=== PATIENT | female | born 1995 | race Caucasian/White ===

== ENCOUNTER 2016-07-14 05:36 | Emergency (ER) | payer BC ==
[2016-07-14] MEDS ORDERED: ONDANSETRON HCL IV 4 MG/2 ML VIAL IV ONE (06:05)
[2016-07-14] MEDS ORDERED: 0.9 % SODIUM CHLORIDE 1,000 ML BAG IV ONE (06:05)
[2016-07-14] MEDS ORDERED: HYDROMORPHONE HCL 1 MG/ML CPJ IVP ONE (06:05)
[2016-07-14 06:11] LABS: BASO % 0.3 % (0-6); GRAN % 58.4 % (47-80); HEMATOCRIT 42.6 % (35.0-47.0); HEMOGLOBIN 14.6 gm/dl (11.6-16.0); LYMPH % 31.4 % (16-45); MEAN CELL VOLUME 85.5 fl (81-97); MEAN CORPUSCULAR HEMOGLOBIN 29.3 pg (27-33); MEAN CORPUSCULAR HGB CONC 34.3 g/dl (32-36); MEAN PLATELET VOLUME 9.8 fl (7.4-10.4); MONO % 7.9 % (0-9); PLATELET COUNT 390 K/uL (130-400); RED BLOOD COUNT 4.98 M/uL (3.80-5.40); RED CELL DISTRIBUTION WIDTH 12.4 % (11.5-14.5); WHITE BLOOD COUNT W/O DIFF 7.9 K/uL (4.2-12.2)
[2016-07-14 06:23] LABS: ALB/GLOB RATIO 1.8 (1.1-1.8); ALBUMIN 5.1 gm/dL (3.5-5.0); ALKALINE PHOSPHATASE 84 U/L (38-126); ALT/SGPT 61 U/L (9-52); AMYLASE 43 U/L (30-110); ANION GAP 18.1 (7-16); AST/SGOT 68 U/L (14-36); BILIRUBIN,TOTAL 0.55 mg/dL (0.2-1.3); BLOOD UREA NITROGEN 13 mg/dL (7-17); CARBON DIOXIDE 22.9 mmol/L (22-30); CREATININE 0.8 mg/dL (0.52-1.04); EST GLOMERULAR FILTRATION RATE > 60 ml/min; GLUCOSE,RANDOM 93 mg/dL (70-110); LIPASE 57 U/L (23-300)
[2016-07-14 06:48] LABS: URINE APPEARANCE CLEAR; URINE BILIRUBIN MODERATE (NEGATIVE); URINE BLOOD NEGATIVE (NEGATIVE); URINE COLOR YELLOW; URINE GLUCOSE (UA) NEGATIVE (NEGATIVE); URINE KETONE 40 mg/dL (NEGATIVE); URINE LEUKOCYTE ESTERASE NEGATIVE (NEGATIVE); URINE NITRITE NEGATIVE (NEGATIVE); URINE PROTEIN NEGATIVE (NEGATIVE)
[2016-07-14 06:50] LABS: HCG,QUALITATIVE URINE NEGATIVE (NEGATIVE)
--- NOTE | 2016-07-14 06:51 | Emergency Department Record ---
History of Present Illness - General Chief Complaint: Shortness of breath Stated Complaint: ADIEL Time Seen by Provider: 07/14/16 06:00 Source: Patient Mode of Arrival: Ambulatory Limitations: No limitations - History of Present Illness Initial Comments: pt awakened with abd pain in epigastric area that gets worse w inspiration. pt had her wisdom teeth pulled 2 days ago and has not eaten much. pt has n but no v/c/d. Onset/Timin -: Minutes(s), Awoke with symptoms Radiation: Other Severity: Moderate Severity scale (1-10): 9 Quality: Sharp Consistency: Constant Improves With: Rest Worsens With: Nothing Associated Symptoms: Abdominal pain Treatments Prior to Arrival: None - Related Data Home Medications Medication Instructions Recorded Confirmed Last Taken Esomeprazole Magnesium [Nexium] 20 mg PO QD cap 04/11/16 Unknown Nortriptyline HCl [Pamelor] 50 mg PO QPM cap 04/11/16 Unknown Allergies Allergy/AdvReac Type Severity Reaction Status Date / Time No Known Drug Allergies Allergy Verified 07/14/16 05:38 Travel Screening - Travel/Exposure Within Last 30 Days Have you traveled within the last 30 days?: No - Travel/Exposure Within Last Year Have you traveled outside the [place] in the last year?: No - Additonal Travel Details Have you been exposed to anyone with a communicable illness?: No - Travel Symptoms Symptom Screening: None Review of Systems Reviewed: No additional complaints except as noted below Constitutional: Reports: As per HPI. Denies: Chills, Fever, Malaise, Night sweats, Weakness, Weight change Eyes: Reports: As per HPI. Denies: Eye discharge, Eye pain, Photophobia, Vision change ENT: Reports: As per HPI. Denies: Congestion, Dental pain, Ear pain, Epistaxis , Hearing loss, Throat pain Respiratory: Reports: As per HPI. Denies: Cough, Dyspnea, Hemoptysis, Stridor, Wheezes Cardiovascular: Reports: As per HPI. Denies: Arrhythmia, Chest pain, Dyspnea on exertion, Edema, Murmurs, Orthopnea, Palpitations, Paroxysmal nocturnal dyspnea, Rheumatic Fever, Syncope Endocrine: Reports: As per HPI. Denies: Fatigue, Heat or cold intolerance, Polydipsia, Polyuria Gastrointestinal: Reports: As per HPI. Denies: Abdominal pain, Constipation, Diarrhea, Hematemesis, Hematochezia, Melena, Nausea, Vomiting Genitourinary: Reports: As per HPI. Denies: Abnormal menses, Discharge, Dyspareunia, Dysuria, Frequency, Hematuria, Incontinence, Retention, Urgency Musculoskeletal: Reports: As per HPI. Denies: Arthralgia, Back pain, Gout, Joint swelling, Myalgia, Neck pain Skin: Reports: As per HPI. Denies: Bruising, Change in color, Change in hair/ nails, Lesions, Pruritus, Rash Neurological: Reports: As per HPI. Denies: Abnormal gait, Confusion, Headache, Numbness, Paresthesias, Seizure, Tingling, Tremors, Vertigo, Weakness Psychiatric: Reports: As per HPI. Denies: Anxiety, Auditory hallucinations, Depression, Homicidal thoughts, Suicidal thoughts, Visual hallucinations Hematological/Lymphatic: Reports: As per HPI. Denies: Anemia, Blood Clots, Easy bleeding, Easy bruising, Swollen glands Past Medical History - SOCIAL HISTORY Smoking Status: Never smoker Alcohol Use: Rare Drug Use: None - RESPIRATORY Hx Respiratory Disorders: No - CARDIOVASCULAR Hx Cardio Disorders: No - NEURO Hx Neuro Disorders: No - GI Hx GI Disorders: Yes Hx Abdominal Pain: Yes Hx Ulcer: Yes - Hx Genitourinary Disorders: Yes Hx Kidney Stones: Yes Hx UTI: Yes (3 uti in past 6 months) - ENDOCRINE Hx Endocrine Disorders: No - MUSCULOSKELETAL Hx Musculoskeletal Disorders: No - PSYCH Hx Psych Problems: No - HEMATOLOGY/ONCOLOGY Hx Hematology/Oncology Disorders: No Family Medical History Any Significant Family History?: No Hx Anxiety: Mother Hx Depression: Mother Hx Heart Disease: Grandparents Hx HTN: Grandparents Physical Exam - General General Appearance: Alert, Oriented x3, Cooperative, Mild distress - Head Head exam: Normal inspection - Eye Eye exam: Normal appearance, PERRL, EOMI Pupils: Normal accommodation - ENT ENT exam: Normal exam, Mucous membranes moist, Normal external ear exam, Normal orophraynx Ear exam: Normal external inspection. negative: External canal tenderness Nasal Exam: Normal inspection. negative: Discharge, Sinus tenderness Mouth exam: Normal external inspection, Tongue normal Teeth exam: Normal inspection. negative: Dental caries Throat exam: Normal inspection. negative: Tonsillar erythema, Tonsillar exudate - Neck Neck exam: Normal inspection, Full ROM. negative: Tenderness - Respiratory Respiratory exam: Normal lung sounds bilaterally. negative: Respiratory distress - Cardiovascular Cardiovascular Exam: Regular rate, Normal rhythm, Normal heart sounds - GI/Abdominal GI/Abdominal exam: Soft, Normal bowel sounds, Tenderness (epigastric and ruq areas) - Rectal Rectal exam: Deferred - exam: Deferred - Extremities Extremities exam: Normal inspection, Full ROM, Normal capillary refill. negative: Tenderness - Back Back exam: Reports: Normal inspection, Full ROM. Denies: Muscle spasm, Rash noted, Tenderness - Neurological Neurological exam: Alert, CN II-XII intact, Normal gait, Oriented X3 - Psychiatric Psychiatric exam: Normal affect, Normal mood - Skin Skin exam: Dry, Intact, Normal color, Warm Course Vital Signs 07/14/16 07/14/16 05:38 06:47 Temperature 98.8 F Pulse Rate 116 H Pulse Rate [ 89 Pulse Ox Probe] Respiratory 22 20 Rate Blood Pressure 154/79 Blood Pressure 124/71 [Left Arm] Pulse Ox 100 99 - Reevaluation(s) Reevaluation #1: 07/14/16 07:09 care being assumed by dr perez Medical Decision Making - Lab Data Result diagrams: 07/14/16 05:42 07/14/16 05:42 Lab Results 07/14/16 07/14/16 07/14/16 Range/Units 05:42 05:42 05:42 WBC 7.9 (4.2-12.2) K/uL RBC 4.98 (3.80-5.40) M/uL Hgb 14.6 (11.6-16.0) gm/dl Hct 42.6 (35.0-47.0) % MCV 85.5 (81-97) fl MCH 29.3 (27-33) pg MCHC 34.3 (32-36) g/dl RDW 12.4 (11.5-14.5) % Plt Count 390 (130-400) K/uL MPV 9.8 (7.4-10.4) fl Gran % 58.4 (47-80) % Lymphocytes % 31.4 (16-45) % Monocytes % 7.9 (0-9) % Eosinophils % 2.0 (0-6) % Basophils % 0.3 (0-6) % Sodium 140 (136-145) mmol/L Potassium 3.9 (3.5-5.1) mmol/L Chloride 99 (98-107) mmol/L Carbon Dioxide 22.9 (22-30) mmol/L Anion Gap 18.1 H (7-16) BUN 13 (7-17) mg/dL Creatinine 0.8 (0.52-1.04) mg/dL Estimated GFR > 60 ml/min Random Glucose 93 (70-110) mg/dL Calcium 9.6 (8.5-10.1) mg/dL Total Bilirubin 0.55 (0.2-1.3) mg/dL AST 68 H (14-36) U/L ALT 61 H (9-52) U/L Alkaline Phosphatase 84 (38-126) U/L Total Protein 8.0 (6.3-8.2) gm/dL Albumin 5.1 H (3.5-5.0) gm/dL Globulin 2.9 (1.4-4.8) gm/dL Albumin/Globulin Ratio 1.8 (1.1-1.8) Amylase 43 (30-110) U/L Lipase 57 (23-300) U/L Urine Color Urine Appearance Urine pH (5.0-8.0) Ur Specific [place] (1.002-1.030) Urine Protein (NEGATIVE) Urine Glucose (UA) (NEGATIVE) Urine Ketones (NEGATIVE) Urine Blood (NEGATIVE) Urine Nitrite (NEGATIVE) Urine Bilirubin (NEGATIVE) Urine Urobilinogen (0.20 - 1.00) E.U./dL Ur Leukocyte Esterase (NEGATIVE) 07/14/16 Range/Units 06:40 WBC (4.2-12.2) K/uL RBC (3.80-5.40) M/uL Hgb (11.6-16.0) gm/dl Hct (35.0-47.0) % MCV (81-97) fl MCH (27-33) pg MCHC (32-36) g/dl RDW (11.5-14.5) % Plt Count (130-400) K/uL MPV (7.4-10.4) fl Gran % (47-80) % Lymphocytes % (16-45) % Monocytes % (0-9) % Eosinophils % (0-6) % Basophils % (0-6) % Sodium (136-145) mmol/L Potassium (3.5-5.1) mmol/L Chloride (98-107) mmol/L Carbon Dioxide (22-30) mmol/L Anion Gap (7-16) BUN (7-17) mg/dL Creatinine (0.52-1.04) mg/dL Estimated GFR ml/min Random Glucose (70-110) mg/dL Calcium (8.5-10.1) mg/dL Total Bilirubin (0.2-1.3) mg/dL AST (14-36) U/L ALT (9-52) U/L Alkaline Phosphatase (38-126) U/L Total Protein (6.3-8.2) gm/dL Albumin (3.5-5.0) gm/dL Globulin (1.4-4.8) gm/dL Albumin/Globulin Ratio (1.1-1.8) Amylase (30-110) U/L Lipase (23-300) U/L Urine Color Yellow Urine Appearance Clear Urine pH 6.0 (5.0-8.0) Ur Specific [place] 1.025 (1.002-1.030) Urine Protein Negative (NEGATIVE) Urine Glucose (UA) Negative (NEGATIVE) Urine Ketones 40 mg/dl H (NEGATIVE) Urine Blood Negative (NEGATIVE) Urine Nitrite Negative (NEGATIVE) Urine Bilirubin Moderate H (NEGATIVE) Urine Urobilinogen 2.0 H (0.20 - 1.00) E.U./dL Ur Leukocyte Esterase Negative (NEGATIVE) Disposition Forms: Patient Portal Access
[2016-07-14] MEDS ORDERED: KETOROLAC 30 MG/ML VIAL IVP ONE (07:56)
--- NOTE | 2016-07-14 08:11 | Emergency Department Record ---
History of Present Illness - General Chief Complaint: Shortness of breath Stated Complaint: ADIEL Time Seen by Provider: 07/14/16 06:00 Source: Patient Mode of Arrival: Ambulatory Limitations: No limitations - History of Present Illness Onset/Timin -: Minutes(s), Awoke with symptoms Radiation: Other Severity: Moderate Severity scale (1-10): 9 Quality: Sharp Consistency: Constant Improves With: Rest Worsens With: Nothing Associated Symptoms: Abdominal pain Treatments Prior to Arrival: None - Related Data Home Medications Medication Instructions Recorded Confirmed Last Taken Esomeprazole Magnesium [Nexium] 20 mg PO QD cap 04/11/16 Unknown Nortriptyline HCl [Pamelor] 50 mg PO QPM cap 04/11/16 Unknown Previous Rx's Medication Instructions Recorded Naproxen [Naprosyn] 500 mg PO Q12H #20 tab 07/14/16 Allergies Allergy/AdvReac Type Severity Reaction Status Date / Time No Known Drug Allergies Allergy Verified 07/14/16 05:38 Travel Screening - Travel/Exposure Within Last 30 Days Have you traveled within the last 30 days?: No - Travel/Exposure Within Last Year Have you traveled outside the [place] in the last year?: No - Additonal Travel Details Have you been exposed to anyone with a communicable illness?: No - Travel Symptoms Symptom Screening: None Review of Systems Constitutional: Reports: As per HPI. Denies: Chills, Fever, Malaise, Night sweats, Weakness, Weight change Eyes: Reports: As per HPI. Denies: Eye discharge, Eye pain, Photophobia, Vision change ENT: Reports: As per HPI. Denies: Congestion, Dental pain, Ear pain, Epistaxis , Hearing loss, Throat pain Respiratory: Reports: As per HPI. Denies: Cough, Dyspnea, Hemoptysis, Stridor, Wheezes Cardiovascular: Reports: As per HPI. Denies: Arrhythmia, Chest pain, Dyspnea on exertion, Edema, Murmurs, Orthopnea, Palpitations, Paroxysmal nocturnal dyspnea, Rheumatic Fever, Syncope Endocrine: Reports: As per HPI. Denies: Fatigue, Heat or cold intolerance, Polydipsia, Polyuria Gastrointestinal: Reports: As per HPI. Denies: Abdominal pain, Constipation, Diarrhea, Hematemesis, Hematochezia, Melena, Nausea, Vomiting Genitourinary: Reports: As per HPI. Denies: Abnormal menses, Discharge, Dyspareunia, Dysuria, Frequency, Hematuria, Incontinence, Retention, Urgency Musculoskeletal: Reports: As per HPI. Denies: Arthralgia, Back pain, Gout, Joint swelling, Myalgia, Neck pain Skin: Reports: As per HPI. Denies: Bruising, Change in color, Change in hair/ nails, Lesions, Pruritus, Rash Neurological: Reports: As per HPI. Denies: Abnormal gait, Confusion, Headache, Numbness, Paresthesias, Seizure, Tingling, Tremors, Vertigo, Weakness Psychiatric: Reports: As per HPI. Denies: Anxiety, Auditory hallucinations, Depression, Homicidal thoughts, Suicidal thoughts, Visual hallucinations Hematological/Lymphatic: Reports: As per HPI. Denies: Anemia, Blood Clots, Easy bleeding, Easy bruising, Swollen glands Past Medical History - SOCIAL HISTORY Smoking Status: Never smoker Alcohol Use: Rare Drug Use: None - RESPIRATORY Hx Respiratory Disorders: No - CARDIOVASCULAR Hx Cardio Disorders: No - NEURO Hx Neuro Disorders: No - GI Hx GI Disorders: Yes Hx Abdominal Pain: Yes Hx Ulcer: Yes - Hx Genitourinary Disorders: Yes Hx Kidney Stones: Yes Hx UTI: Yes (3 uti in past 6 months) - ENDOCRINE Hx Endocrine Disorders: No - MUSCULOSKELETAL Hx Musculoskeletal Disorders: No - PSYCH Hx Psych Problems: No - HEMATOLOGY/ONCOLOGY Hx Hematology/Oncology Disorders: No Family Medical History Any Significant Family History?: No Hx Anxiety: Mother Hx Depression: Mother Hx Heart Disease: Grandparents Hx HTN: Grandparents Physical Exam - General Limitations: No limitations Course Vital Signs 07/14/16 07/14/16 05:38 06:47 Temperature 98.8 F Pulse Rate 116 H Pulse Rate [ 89 Pulse Ox Probe] Respiratory 22 20 Rate Blood Pressure 154/79 Blood Pressure 124/71 [Left Arm] Pulse Ox 100 99 - Reevaluation(s) Reevaluation #1: 07/14/16 08:08 CT Abdomen and Pelvis: bilateral non-obstructing renal calculi, L65-S1 disc herniation, nothing else acute. Patient seen and examined, mild-moderate epigastric/RUQ pain radiating to the right lower ribs. Labs reviewed and are grossly unremarkable for an acute process. D-dimer ordered for completeness as patient does have intra-dermal control, PERC criteria cannot be used. Reevaluation #2: 07/14/16 08:32 D-Dimer <0.19. Patient updated on all results, reports that her pain symptoms are improved following Toradol. Patient appears stable for discharge at this time with return for any worsening of her symptoms. Medical Decision Making - Lab Data Result diagrams: 07/14/16 05:42 07/14/16 05:42 Lab Results 07/14/16 07/14/16 07/14/16 Range/Units 05:42 05:42 05:42 WBC 7.9 (4.2-12.2) K/uL RBC 4.98 (3.80-5.40) M/uL Hgb 14.6 (11.6-16.0) gm/dl Hct 42.6 (35.0-47.0) % MCV 85.5 (81-97) fl MCH 29.3 (27-33) pg MCHC 34.3 (32-36) g/dl RDW 12.4 (11.5-14.5) % Plt Count 390 (130-400) K/uL MPV 9.8 (7.4-10.4) fl Gran % 58.4 (47-80) % Lymphocytes % 31.4 (16-45) % Monocytes % 7.9 (0-9) % Eosinophils % 2.0 (0-6) % Basophils % 0.3 (0-6) % Sodium 140 (136-145) mmol/L Potassium 3.9 (3.5-5.1) mmol/L Chloride 99 (98-107) mmol/L Carbon Dioxide 22.9 (22-30) mmol/L Anion Gap 18.1 H (7-16) BUN 13 (7-17) mg/dL Creatinine 0.8 (0.52-1.04) mg/dL Estimated GFR > 60 ml/min Random Glucose 93 (70-110) mg/dL Calcium 9.6 (8.5-10.1) mg/dL Total Bilirubin 0.55 (0.2-1.3) mg/dL AST 68 H (14-36) U/L ALT 61 H (9-52) U/L Alkaline Phosphatase 84 (38-126) U/L Total Protein 8.0 (6.3-8.2) gm/dL Albumin 5.1 H (3.5-5.0) gm/dL Globulin 2.9 (1.4-4.8) gm/dL Albumin/Globulin Ratio 1.8 (1.1-1.8) Amylase 43 (30-110) U/L Lipase 57 (23-300) U/L Urine Color Urine Appearance Urine pH (5.0-8.0) Ur Specific [place] (1.002-1.030) Urine Protein (NEGATIVE) Urine Glucose (UA) (NEGATIVE) Urine Ketones (NEGATIVE) Urine Blood (NEGATIVE) Urine Nitrite (NEGATIVE) Urine Bilirubin (NEGATIVE) Urine Urobilinogen (0.20 - 1.00) E.U./dL Ur Leukocyte Esterase (NEGATIVE) Urine HCG, Qual (NEGATIVE) 07/14/16 Range/Units 06:40 WBC (4.2-12.2) K/uL RBC (3.80-5.40) M/uL Hgb (11.6-16.0) gm/dl Hct (35.0-47.0) % MCV (81-97) fl MCH (27-33) pg MCHC (32-36) g/dl RDW (11.5-14.5) % Plt Count (130-400) K/uL MPV (7.4-10.4) fl Gran % (47-80) % Lymphocytes % (16-45) % Monocytes % (0-9) % Eosinophils % (0-6) % Basophils % (0-6) % Sodium (136-145) mmol/L Potassium (3.5-5.1) mmol/L Chloride (98-107) mmol/L Carbon Dioxide (22-30) mmol/L Anion Gap (7-16) BUN (7-17) mg/dL Creatinine (0.52-1.04) mg/dL Estimated GFR ml/min Random Glucose (70-110) mg/dL Calcium (8.5-10.1) mg/dL Total Bilirubin (0.2-1.3) mg/dL AST (14-36) U/L ALT (9-52) U/L Alkaline Phosphatase (38-126) U/L Total Protein (6.3-8.2) gm/dL Albumin (3.5-5.0) gm/dL Globulin (1.4-4.8) gm/dL Albumin/Globulin Ratio (1.1-1.8) Amylase (30-110) U/L Lipase (23-300) U/L Urine Color Yellow Urine Appearance Clear Urine pH 6.0 (5.0-8.0) Ur Specific [place] 1.025 (1.002-1.030) Urine Protein Negative (NEGATIVE) Urine Glucose (UA) Negative (NEGATIVE) Urine Ketones 40 mg/dl H (NEGATIVE) Urine Blood Negative (NEGATIVE) Urine Nitrite Negative (NEGATIVE) Urine Bilirubin Moderate H (NEGATIVE) Urine Urobilinogen 2.0 H (0.20 - 1.00) E.U./dL Ur Leukocyte Esterase Negative (NEGATIVE) Urine HCG, Qual Negative (NEGATIVE) Disposition Disposition: Discharge Clinical Impression: Right upper quadrant abdominal pain Disposition: Home, Self-Care Condition: (2) Stable Instructions: Acute Abdominal Pain (ED) Additional Instructions: Return to ED if your symptoms worsen or if you have any concerns. Naprosyn as directed. Follow-up with your family doctor in 3-5 days as directed. Prescriptions: Naproxen [Naprosyn] 500 mg PO Q12H #20 tab.dr Forms: Patient Portal Access Time of Disposition: 08:37
--- NOTE | 2016-07-17 08:04 | CT SCAN REPORT ---
EXAM: CT SCAN OF THE ABDOMEN AND PELVIS HISTORY: PATIENT HAS RIGHT UPPER QUADRANT ABDOMINAL PAIN. SHORTNESS OF BREATH FROM THE PAIN. TECHNIQUE: Serial axial CT scan of the abdomen and pelvis was performed at 2.5 mm intervals from the dome of the diaphragm down to the pubic symphysis without the use of intravenous or oral contrast. Comparison: CT scan of the abdomen and pelvis dated 12/17/15 is provided. FINDINGS: The lung windows of the lung bases demonstrate no CT evidence of a focal infiltrate or pleural effusion. The visualized heart size and contour is within taco limits. The liver, spleen, pancreas, bilateral adrenal glands, and gallbladder are unremarkable. The bilateral kidneys demonstrate no CT evidence of hydronephrosis or hydroureter. Nonobstructive renal calculi are noted within both kidneys. The largest calculus within the right kidney measures approximately 4.9 mm and is unchanged with respect to the prior examination. This is located at the inferior pole of the right kidney. The largest calculus within the left kidney is located within the mid pole and measures approximately 3 mm. The contour and caliber of the abdominal aorta is within normal limits. There is no CT evidence of retroperitoneal, pelvic or inguinal lymphadenopathy. The bowel gas pattern is nonspecific and nonobstructive. There is no CT evidence of free intraperitoneal air or free intraperitoneal fluid. The urinary bladder is unremarkable. The uterus is unremarkable. Bone windows of the visualized osseous structures of the abdomen and pelvis are unremarkable. Please note that the soft tissue windows of the lower lumbar spine in the lateral projection demonstrate findings suspicious for prominent disk herniation at the L5-S1 disk space level. If there is further clinical concern then an MRI of the lumbar spine can be obtained for further evaluation. IMPRESSION: 1. NO CT EVIDENCE OF AN ACUTE INTRAABDOMINAL PROCESS. 2. NONOBSTRUCTIVE BILATERAL RENAL CALCULI. 3. FINDINGS SUGGESTIVE OF DISK HERNIATION AT THE L5-S1 LEVEL. IF THERE IS FURTHER CLINICAL CONCERN THEN MRI OF THE LUMBAR SPINE CAN BE OBTAINED FOR FURTHER EVALUATION. JOB NUMBER: [id number] [facility]
== END 2016-07-14 08:47 | disposition home or self-care (01) ==
LOC: ER 05:36
DX: R10.11 Right upper quadrant pain (principal); R06.02 Shortness of breath; K08.409 Partial loss of teeth, unspecified cause, unspecified class
CPT/HCPCS: 99284 ×2; 96374; 96375; 82150; 83690; 85025; 80053; 81003; 81025; 85379; 74176; J1885; J2405; J1170; J7030

== ENCOUNTER 2017-01-05 02:45 | Emergency (ER) | payer BC ==
[2017-01-05 03:10] LABS: URINE APPEARANCE CLEAR; URINE BILIRUBIN NEGATIVE (NEGATIVE); URINE BLOOD MODERATE (NEGATIVE); URINE COLOR YELLOW; URINE GLUCOSE (UA) NEGATIVE (NEGATIVE); URINE KETONE NEGATIVE (NEGATIVE); URINE LEUKOCYTE ESTERASE NEGATIVE (NEGATIVE); URINE NITRITE NEGATIVE (NEGATIVE); URINE PROTEIN NEGATIVE (NEGATIVE); URINE UROBILINOGEN 0.2 E.U./dL (0.20 - 1.00)
--- NOTE | 2017-01-05 03:12 | Emergency Department Record ---
History of Present Illness - General Chief Complaint: Abdominal Pain Stated Complaint: SHARP ABD PAIN,NAUSEA,DIZZY Time Seen by Provider: 01/05/17 03:04 Source: Patient Mode of Arrival: Ambulatory Limitations: No limitations - History of Present Illness Initial Comments: The patient is here due to a 3 hour hx of sharp stabbing AP. The pain is intermittent and starts in the upper abdomen bilaterally and radiates to the middle. She has had nausea and dry heaves. There has been no reported fever, chills, diarrhea, dysuria, vaginal discharge or bleeding. The patient denies any abdominal surgeries. MD Complaint: Abdominal pain Onset/Timin -: Hour(s) Quality: Sharp Consistency: Constant Improves With: Nothing Worsens With: Bowel movement Associated Symptoms: Nausea, Other - Related Data LMP (females 10-50): Current Home Medications Medication Instructions Recorded Confirmed Last Taken Esomeprazole Magnesium [Nexium] 40 mg PO QD cap 04/11/16 01/05/17 Unknown Control Implant 1 applic SC DAILY 01/05/17 01/05/17 01/05/17 Previous Rx's Medication Instructions Recorded Hydrocodone/Acetaminophen [[place] 1 - 2 each PO QID #10 tablet 01/05/17 5-325 Tablet] Allergies Allergy/AdvReac Type Severity Reaction Status Date / Time No Known Drug Allergies Allergy Verified 01/05/17 02:50 Travel Screening - Travel/Exposure Within Last 30 Days Have you traveled within the last 30 days?: No - Travel Symptoms Symptom Screening: None Review of Systems Constitutional: Denies: Chills, Fever Eyes: Denies: Eye discharge ENT: Denies: Congestion Respiratory: Denies: Cough, Dyspnea Past Medical History - SOCIAL HISTORY Smoking Status: Never smoker - RESPIRATORY Hx Respiratory Disorders: No - CARDIOVASCULAR Hx Cardio Disorders: No - NEURO Hx Neuro Disorders: No - GI Hx GI Disorders: Yes Hx Abdominal Pain: Yes Hx Reflux: Yes Hx Ulcer: Yes - Hx Genitourinary Disorders: Yes Hx Kidney Stones: Yes Hx UTI: Yes (3 uti in past 6 months) - ENDOCRINE Hx Endocrine Disorders: No - MUSCULOSKELETAL Hx Musculoskeletal Disorders: No - PSYCH Hx Psych Problems: No - HEMATOLOGY/ONCOLOGY Hx Hematology/Oncology Disorders: No Family Medical History Any Significant Family History?: Yes Hx Anxiety: Mother Hx Depression: Mother Hx Heart Disease: Grandparents Hx HTN: Grandparents Physical Exam - General General Appearance: Alert, Oriented x3, Cooperative, No acute distress - Head Head exam: Atraumatic, Normocephalic, Normal inspection - Eye Eye exam: Normal appearance, PERRL - Neck Neck exam: Normal inspection, Full ROM. negative: Tenderness - Respiratory Respiratory exam: Normal lung sounds bilaterally. negative: Respiratory distress - Cardiovascular Cardiovascular Exam: Regular rate, Normal rhythm, Normal heart sounds - GI/Abdominal GI/Abdominal exam: Soft, Normal bowel sounds, Tenderness (There is mild tenderness to the upper abdomen bilaterally.). negative: Guarding, Pulsatile mass, Rebound, Rigid - Extremities Extremities exam: Normal inspection, Full ROM, Normal capillary refill. negative: Tenderness Course Vital Signs 01/05/17 02:55 Temperature 98.2 F Pulse Rate [ 105 H Pulse Ox Probe] Respiratory 22 Rate Blood Pressure 124/64 [Left Arm] Pulse Ox 96 - Reevaluation(s) Reevaluation #1: The patient is doing much better at this time. Her pain has resolved and on exam her abdomen is very soft and nontender in all 4 quads. The patient is up ambulating normally with no pain or discomfort. I did explain to the patient the need for an US but since we are not able to perform that test she is to return to the ER at 8am Friday morning for the test. 01/05/17 04:01 Medical Decision Making - Lab Data Result diagrams: 01/05/17 03:17 01/05/17 03:17 Disposition Disposition: Discharge Clinical Impression: Abdominal pain Qualifiers: Abdominal location: upper abdomen, unspecified Qualified Code(s): R10.10 - Upper abdominal pain, unspecified Disposition: Home, Self-Care Condition: (1) Good Instructions: Abdominal Pain (ED) Additional Instructions: Please eat a very bland diet and take your regular medicines. Please use [place] for pain if needed. Please return to the ER at 8am Friday morning for an abdominal US. Return to the ER sooner for any increased pain, fever, or vomiting. Prescriptions: Hydrocodone/Acetaminophen [[place] 5-325 Tablet] 1 - 2 each PO QID #10 tablet Forms: Patient Portal Access Time of Disposition: 04:00 Quality - Quality Measures Quality Measures: N/A - Blood Pressure Screening View Details: Yes Blood Pressure Classification: Normal BP Reading Systolic Measurement: 108 Diastolic Measurement: 68 Screening for High Blood Pressure: < Normal BP, F/U Not Required > [[id number]] Normal BP Follow-up Interventions: No follow-up required
[2017-01-05] MEDS: 0.9 % SODIUM CHLORIDE 1,000 ML BAG IV ONE (03:18)
[2017-01-05] MEDS: ONDANSETRON HCL IV 4 MG/2 ML VIAL IV ONE (03:18)
[2017-01-05] MEDS: SUCRALFATE 1 G/10 ML UD PO ONE (03:18)
[2017-01-05 03:21] LABS: URINE AMORPHOUS SEDIMENT 1+; URINE MUCUS LIGHT
[2017-01-05 03:21] LABS: BASO % 0.2 % (0-6); EOS % 0.8 % (0-6); GRAN % 72.4 % (47-80); HEMATOCRIT 38.5 % (35.0-47.0); HEMOGLOBIN 13.5 gm/dl (11.6-16.0); LYMPH % 20.5 % (16-45); MEAN CELL VOLUME 85.6 fl (81-97); MEAN CORPUSCULAR HGB CONC 35.1 g/dl (32-36); MEAN PLATELET VOLUME 10.1 fl (7.4-10.4); MONO % 6.1 % (0-9); PLATELET COUNT 309 K/uL (130-400); RED CELL DISTRIBUTION WIDTH 12.4 % (11.5-14.5); WHITE BLOOD COUNT W/O DIFF 14.2 K/uL (4.2-12.2)
[2017-01-05 03:32] LABS: ALBUMIN 4.8 gm/dL (3.5-5.0); ALKALINE PHOSPHATASE 74 U/L (38-126); ALT/SGPT 33 U/L (9-52); ANION GAP 10.9 (7-16); AST/SGOT 18 U/L (14-36); BILIRUBIN,TOTAL 0.86 mg/dL (0.2-1.3); BLOOD UREA NITROGEN 13 mg/dL (7-17); CARBON DIOXIDE 23.1 mmol/L (22-30); CREATININE 0.8 mg/dL (0.52-1.04); EST GLOMERULAR FILTRATION RATE > 60 ml/min; GLUCOSE,RANDOM 110 mg/dL (70-110); LIPASE 48 U/L (23-300); TOTAL PROTEIN 7.5 gm/dL (6.3-8.2)
[2017-01-05] MEDS: KETOROLAC 30 MG/ML VIAL IVP ONE (03:44)
[2017-01-05] MEDS: MAGNESIUM HYDROXIDE/AL HYDROX 30 ML, LIDOCAINE VISC 2% 200 MG PO ONE ×2 (03:45)
== END 2017-01-05 04:17 | disposition home or self-care (01) ==
LOC: ER 02:45
DX: R10.10 Upper abdominal pain, unspecified (principal); R11.0 Nausea; R42 Dizziness and giddiness
CPT/HCPCS: 99284 ×2; 96374; 96375; 96361; 83690; 85025; 80076; 80048; 81001; 81025; J1885; J2405; J7030

== ENCOUNTER 2017-01-06 09:30 | Observation (INO) | payer BC ==
--- NOTE | 2017-01-06 09:34 | Emergency Department Record ---
History of Present Illness - General Stated Complaint: ULTRASOUND Time Seen by Provider: 01/06/17 09:33 Source: Patient Mode of Arrival: Ambulatory Limitations: No limitations - History of Present Illness Initial Comments: 22 yo female presents for a recheck and scheduled US. The patient has had pain in the upper abdomen since Friday. It starts in the upper outer bialteral abdomen and radiates to the middle. She has some intermittent nausea. None currently. No diarrhea. No fever. She has had recurrent pain in the past. She has had 6 CT scan and an upper GI that demonstrated gastric ulcers. No blood in the stools. MD Complaint: Abdominal pain -: Days(s) Location: Epigastric Radiation: Epigastric Migration to: Epigastric Severity: Moderate Quality: Aching Consistency: Intermittent Improves With: Nothing Worsens With: Nothing Associated Symptoms: Anorexia - Related Data Patient : No Home Medications Medication Instructions Recorded Confirmed Last Taken Esomeprazole Magnesium [Nexium] 40 mg PO QD cap 04/11/16 01/06/17 01/06/17 Control Implant 1 applic SC DAILY 01/05/17 01/06/17 01/06/17 Previous Rx's Medication Instructions Recorded Hydrocodone/Acetaminophen [[place] 1 - 2 each PO QID #10 tablet 01/05/17 5-325 Tablet] Allergies Allergy/AdvReac Type Severity Reaction Status Date / Time No Known Drug Allergies Allergy Verified 01/05/17 02:50 Review of Systems Constitutional: Denies: Chills, Fever, Malaise, Weakness Eyes: Denies: Eye discharge ENT: Denies: Congestion, Throat pain Respiratory: Denies: Cough, Dyspnea, Hemoptysis, Stridor, Wheezes Cardiovascular: Denies: Chest pain, Palpitations, Syncope Endocrine: Denies: Fatigue Gastrointestinal: Reports: Abdominal pain, Nausea, Vomiting. Denies: Diarrhea, Hematemesis, Hematochezia Genitourinary: Denies: Dysuria, Urgency Musculoskeletal: Denies: Arthralgia, Back pain, Neck pain Skin: Denies: Bruising, Change in color, Rash Neurological: Denies: Headache, Numbness Psychiatric: Denies: Anxiety Hematological/Lymphatic: Denies: Blood Clots, Easy bleeding, Easy bruising, Swollen glands Past Medical History - SOCIAL HISTORY Smoking Status: Never smoker - RESPIRATORY Hx Respiratory Disorders: No - CARDIOVASCULAR Hx Cardio Disorders: No - NEURO Hx Neuro Disorders: No - GI Hx GI Disorders: Yes Hx Abdominal Pain: Yes Hx Reflux: Yes Hx Ulcer: Yes - Hx Genitourinary Disorders: Yes Hx Kidney Stones: Yes Hx UTI: Yes (3 uti in past 6 months) - ENDOCRINE Hx Endocrine Disorders: No - MUSCULOSKELETAL Hx Musculoskeletal Disorders: No - PSYCH Hx Psych Problems: No - HEMATOLOGY/ONCOLOGY Hx Hematology/Oncology Disorders: No Family Medical History Hx Anxiety: Mother Hx Depression: Mother Hx Heart Disease: Grandparents Hx HTN: Grandparents Physical Exam - General General Appearance: Alert, Oriented x3, Cooperative, No acute distress Limitations: No limitations - Head Head exam: Normal inspection - Eye Eye exam: Normal appearance - ENT ENT exam: Normal exam Ear exam: Normal external inspection Nasal Exam: Normal inspection Mouth exam: Normal external inspection - Neck Neck exam: Normal inspection, Full ROM. negative: Tenderness - Respiratory Respiratory exam: Normal lung sounds bilaterally. negative: Respiratory distress - Cardiovascular Cardiovascular Exam: Regular rate, Normal rhythm, Normal heart sounds - GI/Abdominal GI/Abdominal exam: Soft, Normal bowel sounds, Tenderness (mild in the epigastrium). negative: Distended, Guarding, Rebound, Rigid - Rectal Rectal exam: Deferred - exam: Deferred - Extremities Extremities exam: Normal inspection, Full ROM, Normal capillary refill. negative: Tenderness - Back Back exam: Reports: Normal inspection, Full ROM. Denies: CVA tenderness (R), CVA tenderness (L), Muscle spasm, Paraspinal tenderness, Rash noted, Tenderness , Vertebral tenderness - Neurological Neurological exam: Alert, Normal gait, Oriented X3 - Psychiatric Psychiatric exam: Normal affect, Normal mood - Skin Skin exam: Dry, Intact, Normal color, Warm Course - Reevaluation(s) Reevaluation #1: The labs were reviewed No acute changes in the CBC, CMP The lipase is now elevated to 546 The patient is in US 01/06/17 10:38 Reevaluation #2: I ANDERSON MCFARLANE regarding pancreatitis diagnosis Will admit for OBV 01/06/17 11:09 Reevaluation #3: US no acute findings. No stones. GB not fully distended. 01/06/17 11:24 Medical Decision Making - Lab Data Result diagrams: 01/06/17 10:02 01/06/17 10:02 Disposition Disposition: Admit Clinical Impression: Abdominal pain Qualifiers: Abdominal location: unspecified location Qualified Code(s): R10.9 - Unspecified abdominal pain Pancreatitis Qualifiers: Chronicity: acute Pancreatitis type: unspecified pancreatitis type Acute pancreatitis complication: unspecified Qualified Code(s): K85.90 - Acute pancreatitis without necrosis or infection, unspecified Disposition: Still a Patient at [facility] Decision to Admit: Admit from ER Decision to Admit Date: 01/06/17 Decision to Admit Time: 11:10 Condition: (1) Good Time of Disposition: 11:10 Quality - Quality Measures Quality Measures: N/A - Blood Pressure Screening View Details: Yes Blood Pressure Classification: Normal BP Reading Systolic Measurement: 110 Diastolic Measurement: 71 Screening for High Blood Pressure: < Normal BP, F/U Not Required > [G8783] Normal BP Follow-up Interventions: No follow-up required
[2017-01-06 10:08] LABS: BASO % 0.3 % (0-6); GRAN % 48.2 % (47-80); HEMOGLOBIN 12.6 gm/dl (11.6-16.0); LYMPH % 42.1 % (16-45); MEAN CELL VOLUME 88.4 fl (81-97); MEAN CORPUSCULAR HEMOGLOBIN 29.3 pg (27-33); MEAN CORPUSCULAR HGB CONC 33.2 g/dl (32-36); MEAN PLATELET VOLUME 10.2 fl (7.4-10.4); MONO % 7.4 % (0-9); PLATELET COUNT 301 K/uL (130-400); RED CELL DISTRIBUTION WIDTH 12.6 % (11.5-14.5); WHITE BLOOD COUNT W/O DIFF 6.9 K/uL (4.2-12.2)
[2017-01-06 10:32] LABS: ALB/GLOB RATIO 1.7 (1.1-1.8); ALBUMIN 4.5 gm/dL (3.5-5.0); ALKALINE PHOSPHATASE 68 U/L (38-126); ALT/SGPT 37 U/L (9-52); ANION GAP 8.5 (7-16); AST/SGOT 15 U/L (14-36); BILIRUBIN,TOTAL 0.71 mg/dL (0.2-1.3); BLOOD UREA NITROGEN 12 mg/dL (7-17); CARBON DIOXIDE 23.5 mmol/L (22-30); CREATININE 0.8 mg/dL (0.52-1.04); EST GLOMERULAR FILTRATION RATE > 60 ml/min; GLUCOSE,RANDOM 89 mg/dL (70-110); LIPASE 546 U/L (23-300); TOTAL PROTEIN 7.1 gm/dL (6.3-8.2)
[2017-01-06] MEDS ORDERED: 0.9 % SODIUM CHLORIDE 1,000 ML BAG IV ONE (10:41)
[2017-01-06 11:18] LABS: URINE APPEARANCE CLEAR; URINE BILIRUBIN NEGATIVE (NEGATIVE); URINE GLUCOSE (UA) NEGATIVE (NEGATIVE); URINE KETONE NEGATIVE (NEGATIVE); URINE PROTEIN NEGATIVE (NEGATIVE)
[2017-01-06 11:19] LABS: URINE BLOOD MODERATE (NEGATIVE); URINE COLOR STRAW; URINE LEUKOCYTE ESTERASE NEGATIVE (NEGATIVE); URINE NITRITE NEGATIVE (NEGATIVE); URINE UROBILINOGEN 0.2 E.U./dL (0.20 - 1.00)
[2017-01-06 11:24] LABS: HCG,QUALITATIVE URINE NEGATIVE (NEGATIVE); URINE BACTERIA NONE SEEN; URINE EPITHELIAL CELLS 0 - 2 (FEW); URINE WBC NONE SEEN (0-2/hpf)
[2017-01-06] MEDS ORDERED: ONDANSETRON HCL IV 4 MG/2 ML VIAL IVP ONE (11:37)
[2017-01-06] MEDS ORDERED: MORPHINE SULFATE 5 MG/ML PFS IVP ONE (11:37)
[2017-01-06] MEDS: PANTOPRAZOLE SODIUM IV 40 MG VIAL IVP SCH ×2 (13:15→22:11)
[2017-01-06] MEDS: MORPHINE SULFATE 5 MG/ML PFS IVP PRN ×3 (14:13→22:11)
[2017-01-06] MEDS: 0.9 % SODIUM CHLORIDE 1000ML 1,000 ML IV PRN (22:12)
[2017-01-06] MEDS: ONDANSETRON HCL IV 4 MG/2 ML VIAL IVP PRN (22:29)
[2017-01-07] MEDS: ONDANSETRON HCL IV 4 MG/2 ML VIAL IVP PRN (04:44)
[2017-01-07] MEDS: MORPHINE SULFATE 5 MG/ML PFS IVP PRN ×3 (04:45→13:08)
[2017-01-07 06:19] LABS: ALB/GLOB RATIO 1.6 (1.1-1.8); ALBUMIN 3.8 gm/dL (3.5-5.0); ALKALINE PHOSPHATASE 56 U/L (38-126); ALT/SGPT 33 U/L (9-52); ANION GAP 9.5 (7-16); AST/SGOT 16 U/L (14-36); BILIRUBIN,TOTAL 0.78 mg/dL (0.2-1.3); BLOOD UREA NITROGEN 8 mg/dL (7-17); CARBON DIOXIDE 23.5 mmol/L (22-30); CREATININE 0.8 mg/dL (0.52-1.04); EST GLOMERULAR FILTRATION RATE > 60 ml/min; GLUCOSE,RANDOM 86 mg/dL (70-110); LIPASE 167 U/L (23-300); TOTAL PROTEIN 6.2 gm/dL (6.3-8.2)
[2017-01-07 06:24] LABS: BASO % 0.3 % (0-6); EOS % 1.6 % (0-6); GRAN % 44.9 % (47-80); HEMATOCRIT 35.4 % (35.0-47.0); HEMOGLOBIN 11.7 gm/dl (11.6-16.0); LYMPH % 47.5 % (16-45); MEAN CELL VOLUME 89.2 fl (81-97); MEAN CORPUSCULAR HEMOGLOBIN 29.5 pg (27-33); MEAN CORPUSCULAR HGB CONC 33.1 g/dl (32-36); MEAN PLATELET VOLUME 10.5 fl (7.4-10.4); MONO % 5.7 % (0-9); PLATELET COUNT 287 K/uL (130-400); RED BLOOD COUNT 3.97 M/uL (3.80-5.40); RED CELL DISTRIBUTION WIDTH 12.5 % (11.5-14.5); WHITE BLOOD COUNT W/O DIFF 7.4 K/uL (4.2-12.2)
--- NOTE | 2017-01-07 07:18 | ULTRASOUND REPORT ---
EXAM: EMERGENCY ABDOMEN ULTRASOUND HISTORY: RECURRENT UPPER ABDOMINAL PAIN FOR THREE DAYS WITH NAUSEA AND VOMITING FOR THREE DAYS. TECHNIQUE: Complete real-time ultrasound examination of the abdomen was obtained. Comparison: No prior abdomen ultrasound with which to compare. FINDINGS: The majority of the pancreas is visualized and appears negative with no pancreatic mass or peripancreatic fluid collection evident. The abdominal aorta appears negative with no aneurysm seen. The IVC was negative as seen. The liver appears negative with no hepatic mass or intrahepatic biliary dilatation seen. The right kidney measures 11.2 cm in length with no hydronephrosis evident. The common duct was seen and was of normal caliber. The gallbladder is not fully distended. The storeroom supervisor notes that the patient was not NPO for the exam having had thirty-two (32) ounces of water prior to the exam. Mild diffuse prominence of the gallbladder wall may simply be due to incomplete distention. The storeroom supervisor dictates a negative sonographic Arciniega' s sign and no definite pericholecystic fluid collection identified. The left kidney measures 12.1 cm in length with no hydronephrosis evident. The spleen appears negative. IMPRESSION: 1. THE GALLBLADDER IS INCOMPLETELY DISTENDED WITH THE PATIENT NOT NPO FOR THE EXAM. MILD DIFFUSE GALLBLADDER WALL PROMINENCE IS NONSPECIFIC, BUT MAY JUST BE DUE TO THE INCOMPLETE DISTENTION. NO ACTUAL GALLSTONES OR BILIARY DILATATION SEEN AND A NEGATIVE SONOGRAPHIC ARCINIEGA'S SIGN. 2. THE REMAINDER OF THE ABDOMEN ULTRASOUND APPEARED NEGATIVE. NO HYDRONEPHROSIS EVIDENT ON EITHER SIDE. JOB NUMBER: [id number] MTDD
[2017-01-07] MEDS: PANTOPRAZOLE SODIUM IV 40 MG VIAL IVP SCH ×2 (09:13→21:12)
[2017-01-07] MEDS: 0.9 % SODIUM CHLORIDE 1000ML 1,000 ML IV PRN (09:20)
[2017-01-07] MEDS ORDERED: [UNRECOGNIZED DRUG - OTHER] SC SCH (10:00)
--- NOTE | 2017-01-07 10:57 | History & Physical ---
History of Present Illness - Date of Service Date of Service for History & Physical: 01/08/17 - History of Present Illness Admitting Diagnosis: Pancreatitis History of Present Illness: 22 yo female presents after two visits to ED within the weekend for bilateral upper quad abdominal pain. At the second ED visit she had an US which did not show any significant findings. Patients symptoms started on Friday while driving. SHe stated it felt sharp and unlike any pain she had experienced in the past. IN the past, patient has experienced mulitple kidney stones and ulcers (age 16). The pain starts in the upper outer bilateral abdomen and radiates to the middle. She has some intermittent nausea and dry heaving. she has not been able to tolerate any solids without significant nausea. No diarrhea. No fever. No blood in the stools. 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 She states there have been no sick contacts or any other people at the green party that she knows that got sick. She is on her 4th day of her menses. Has implanan for BC and is sexually active. She admits on Friday she drank heavily as it was her 22st birthday. She does not typcially drink per patient and she did not have any symptoms apart from a headache until Friday. in the ED, her lipase was in 500s but this has trended down on its own. No other labs were abnormal including her WBC, liver enzymes, etc. Travel Screening - Travel/Exposure Within Last 30 Days Have you traveled within the last 30 days?: No - Travel/Exposure Within Last Year Have you traveled outside the [place] in the last year?: No - Additonal Travel Details Have you been exposed to anyone with a communicable illness?: No - Travel Symptoms Symptom Screening: None Review of Systems Constitutional: Denies: Chills, Fever, Malaise, Weakness Eyes: Denies: Eye discharge ENT: Denies: Congestion, Throat pain Respiratory: Denies: Cough, Dyspnea, Hemoptysis, Stridor, Wheezes Cardiovascular: Denies: Chest pain, Palpitations, Syncope Endocrine: Denies: Fatigue Gastrointestinal: Reports: Abdominal pain, Nausea, Vomiting. Denies: Diarrhea, Hematemesis, Hematochezia Genitourinary: Denies: Dysuria, Urgency Musculoskeletal: Denies: Arthralgia, Back pain, Neck pain Skin: Denies: Bruising, Change in color, Rash Neurological: Denies: Headache, Numbness Psychiatric: Denies: Anxiety Hematological/Lymphatic: Denies: Blood Clots, Easy bleeding, Easy bruising, Swollen glands Past Medical History - SOCIAL HISTORY Smoking Status: Never smoker Alcohol Use: None Drug Use: None - RESPIRATORY Hx Respiratory Disorders: No - CARDIOVASCULAR Hx Cardio Disorders: No - NEURO Hx Neuro Disorders: No - GI Hx GI Disorders: Yes Hx Abdominal Pain: Yes Hx Reflux: Yes Hx Ulcer: Yes - Hx Genitourinary Disorders: Yes Hx Kidney Stones: Yes Hx UTI: Yes (3 uti in past 6 months) - ENDOCRINE Hx Endocrine Disorders: No - MUSCULOSKELETAL Hx Musculoskeletal Disorders: No - PSYCH Hx Psych Problems: No - HEMATOLOGY/ONCOLOGY Hx Hematology/Oncology Disorders: No Family Medical History Any Significant Family History?: Yes Hx Anxiety: Mother Hx Depression: Mother Hx Heart Disease: Grandparents Hx HTN: Grandparents H&P Meds/Allergies - Allergies Allergies: Allergies Allergy/AdvReac Type Severity Reaction Status Date / Time No Known Drug Allergies Allergy Verified 01/05/17 02:50 - Home Medications Home Medications Medication Instructions Recorded Confirmed Last Taken Esomeprazole Magnesium [Nexium] 40 mg PO QD cap 04/11/16 01/06/17 01/06/17 Control Implant 1 applic SC DAILY 01/05/17 01/06/17 01/06/17 Previous Rx's Medication Instructions Recorded Hydrocodone/Acetaminophen [[place] 1 - 2 each PO QID #10 tablet 01/05/17 5-325 Tablet] - Active Medications Active Medications: Current Medications Amitriptyline HCl (Elavil) 25 mg PO QHS ADAMA Sodium Chloride () 1,000 mls @ 100 mls/hr IV .Q10H PRN PRN Reason: LARGE VOLUME IV Last Admin: 01/07/17 09:20 Dose: 100 mls/hr Morphine Sulfate (Morphine Sulfate) 2.5 mg IVP Q4HR PRN PRN Reason: Abdominal Pain Stop: 01/13/17 12:21 Last Admin: 01/07/17 09:19 Dose: 2.5 mg Ondansetron HCl (Zofran) 4 mg IVP Q4H PRN PRN Reason: NAUSEA Last Admin: 01/07/17 04:44 Dose: 4 mg Pantoprazole Sodium (Protonix Iv) 40 mg IVP Q12HR ADAMA Last Admin: 01/07/17 09:13 Dose: 40 mg Physical Exam - Vital Signs Vital Signs: Vital Signs - Last 24 Hrs Temp Pulse Pulse Resp BP BP Pulse Ox 01/07/17 09:30 98.9 F 66 16 95/56 100 01/07/17 09:22 60 16 01/07/17 04:00 97.8 F 63 16 98/55 98 01/06/17 21:00 18 01/06/17 20:19 98.4 F 68 24 111/64 99 01/06/17 12:41 20 01/06/17 12:20 97.8 F 75 18 122/69 100 - General General Appearance: Alert, Oriented x3, Cooperative, Mild distress, Other (obese ) Limitations: No limitations - Head Head exam: Normal inspection - Eye Eye exam: Normal appearance - ENT ENT exam: Normal exam Ear exam: Normal external inspection Nasal Exam: Normal inspection Mouth exam: Normal external inspection - Neck Neck exam: Normal inspection, Full ROM. negative: Tenderness - Respiratory Respiratory exam: Normal lung sounds bilaterally. negative: Respiratory distress - Cardiovascular Cardiovascular Exam: Regular rate, Normal rhythm, Normal heart sounds - GI/Abdominal GI/Abdominal exam: Soft, Normal bowel sounds, Tenderness (mild in the epigastrium). negative: Distended, Guarding, Rebound, Rigid - Rectal Rectal exam: Deferred - exam: Deferred - Extremities Extremities exam: Normal inspection, Full ROM, Normal capillary refill. negative: Tenderness - Back Back exam: Reports: Normal inspection, Full ROM. Denies: CVA tenderness (R), CVA tenderness (L), Muscle spasm, Paraspinal tenderness, Rash noted, Tenderness , Vertebral tenderness - Neurological Neurological exam: Alert, Normal gait, Oriented X3 - Psychiatric Psychiatric exam: Normal affect, Normal mood - Skin Skin exam: Dry, Intact, Normal color, Warm Results - Labs Result Diagrams: 01/08/17 10:35 01/08/17 10:35 Labs Last 24 Hours: Laboratory Results - last 24 hr 01/07/17 01/07/17 06:00 06:00 WBC 7.4 RBC 3.97 Hgb 11.7 Hct 35.4 MCV 89.2 MCH 29.5 MCHC 33.1 RDW 12.5 Plt Count 287 MPV 10.5 H Gran % 44.9 L Lymphocytes % 47.5 H Monocytes % 5.7 Eosinophils % 1.6 Basophils % 0.3 Sodium 139 Potassium 4.1 Chloride 106 Carbon Dioxide 23.5 Anion Gap 9.5 BUN 8 Creatinine 0.8 Estimated GFR > 60 Random Glucose 86 Calcium 8.7 Total Bilirubin 0.78 AST 16 ALT 33 Alkaline Phosphatase 56 Total Protein 6.2 L Albumin 3.8 Globulin 2.4 Albumin/Globulin Ratio 1.6 Lipase 167 VTE H&P Assessment - Risk for VTE Risk for VTE: Yes Risk Level: Low Risk Assessment Date: 01/08/17 Risk Assessment Time: 11:49 VTE Orders Placed or Will Be Placed: No VTE Reason for No Prophylaxis: Not Indicated Plan - Detailed Diagnosis and Plan (1) Abdominal pain Current Visit: Yes Status: Acute Qualifiers: Abdominal location: right upper quadrant Qualified Code(s): R10.11 - Right upper quadrant pain Base Code: R10.9 - UNSPECIFIED ABDOMINAL PAIN Comment: 01/07/17- discussed currently we do not see an etiology for patient's symtpoms. Discussed doing a CT with contrast to see if there is anything further to be noted. Mom and patient agrees. Spoke to Dr. Berrios after CT did not show anythign significant except small periumbilical hernia (not incarcerated) and bilateral non- obstructing kidney stones. Will trial overnight with pain medications and fluids to see if symtpoms improve, if not will transfer to [facility] to have GI and surgery see patient.
[2017-01-07] MEDS ORDERED: ACETAMINOPHEN 500 MG TABLET PO ONE (14:50)
[2017-01-07] MEDS ORDERED: 0.9 % SODIUM CHLORIDE 1,000 ML BAG IV ONE (16:20)
[2017-01-07] MEDS: HYDROCODONE/APAP 5/325MG TABLET PO PRN ×2 (16:26→21:12)
[2017-01-07] MEDS ORDERED: AMITRIPTYLINE 25 MG TABLET PO SCH (22:00)
[2017-01-08] MEDS: 0.9 % SODIUM CHLORIDE 1000ML 1,000 ML IV PRN ×2 (01:07→12:20)
--- NOTE | 2017-01-08 07:22 | CT SCAN REPORT ---
EXAM: EMERGENCY CT SCAN OF THE ABDOMEN BOTH WITHOUT AND WITH CONTRAST HISTORY: SEVERE RIGHT UPPER QUADRANT PAIN. TECHNIQUE: Axial CT scan of the abdomen was performed both prior to and after the intravenous administration of 100 ml of Omnipaque 300 as the IV contrast. Oral contrast was also utilized. Comparison: Noncontrast CT of the abdomen and pelvis 07/14/16. FINDINGS: On the precontrast images today, there are bilateral currently nonobstructing intrarenal calculi evident. Bilateral nonobstructing intrarenal calculi were evident on the prior CT as well. No appreciable hydronephrosis or hydroureter of the visualized ureters. As no pelvic CT was performed, the more distal aspect of the ureters and bladder are not included on this study. No calcified gallstones are seen within the gallbladder. On the post contrast study today, no definite hepatic, splenic, adrenal, pancreatic, or renal mass identified. There is probably a small accessory spleen just medial to the spleen itself, also present previously. The appendix is visualized and is at about the upper limits of normal in size, with no appendicitis evident. The lung bases are clear. No free intraperitoneal air or free intraperitoneal fluid identified. Small periumbilical anterior abdominal wall hernia containing adipose tissue, but no bowel. There again appears to be a central midline disk protrusion at the lumbosacral interspace essentially unchanged from before. IMPRESSION: 1. BILATERAL TINY NONOBSTRUCTING INTRARENAL CALCULI. 2. APPARENT SMALL ACCESSORY SPLEEN. 3. VERY SMALL ANTERIOR ABDOMINAL WALL HERNIA CONTAINING ADIPOSE TISSUE, BUT NO BOWEL. 4. APPEARANCE LIKELY REPRESENTING A MIDLINE DISK PROTRUSION AT THE LUMBOSACRAL INTERSPACE UNCHANGED FROM 07/14/16. 5. NO FREE AIR OR FREE FLUID EVIDENT. THE APPENDIX IS AT ABOUT THE UPPER LIMITS OF NORMAL IN SIZE WITH NO INFLAMMATORY CHANGES SEEN TO SUGGEST ACUTE APPENDICITIS. JOB NUMBER: [id number] [facility]
[2017-01-08] MEDS: HYDROCODONE/APAP 5/325MG TABLET PO PRN (08:22)
[2017-01-08] MEDS: PANTOPRAZOLE SODIUM IV 40 MG VIAL IVP SCH (09:46)
[2017-01-08 10:50] LABS: BASO % 0.3 % (0-6); EOS % 0.9 % (0-6); GRAN % 59.2 % (47-80); HEMOGLOBIN 12.1 gm/dl (11.6-16.0); LYMPH % 33.3 % (16-45); MEAN CELL VOLUME 87.8 fl (81-97); MEAN CORPUSCULAR HEMOGLOBIN 29.5 pg (27-33); MEAN CORPUSCULAR HGB CONC 33.6 g/dl (32-36); MEAN PLATELET VOLUME 10.4 fl (7.4-10.4); MONO % 6.3 % (0-9); PLATELET COUNT 284 K/uL (130-400); RED CELL DISTRIBUTION WIDTH 12.3 % (11.5-14.5); WHITE BLOOD COUNT W/O DIFF 6.8 K/uL (4.2-12.2)
[2017-01-08 11:13] LABS: ALB/GLOB RATIO 1.6 (1.1-1.8); ALKALINE PHOSPHATASE 60 U/L (38-126); ALT/SGPT 35 U/L (9-52); ANION GAP 7.7 (7-16); AST/SGOT 14 U/L (14-36); BILIRUBIN,TOTAL 0.81 mg/dL (0.2-1.3); BLOOD UREA NITROGEN 5 mg/dL (7-17); C-REACTIVE PROTEIN 0.8 mg/dL (0.0-0.9); CARBON DIOXIDE 24.3 mmol/L (22-30); CHOLESTEROL 168 mg/dL (0-200); CREATININE 0.8 mg/dL (0.52-1.04); EST GLOMERULAR FILTRATION RATE > 60 ml/min; GLUCOSE,RANDOM 86 mg/dL (70-110); HDL CHOLESTEROL 31 mg/dL (40-60); TOTAL PROTEIN 6.5 gm/dL (6.3-8.2); TRIGLYCERIDES 167 mg/dL (30-200); VLDL CHOLESTEROL 33 mg/dL (10.00-40.00)
[2017-01-08 11:22] LABS: LDL CHOLESTEROL/MEASURED 119.3 mg/dL (0-100)
--- NOTE | 2017-01-08 11:52 | Discharge Summary ---
Providers Discharge Summary Date: 01/08/17 Date of admission: 01/06/17 12:10 Expected Date of Discharge: 01/08/17 Attending physician: BOB THOMPSON Primary care physician: BOB THOMPSON Consults: Consult Orders 01/07/17 16:37 Consult NOW Consulting Provider: Richar Berrios Physician Instructions: surgical consult Reason For Exam: abdominal pain Physical Exam - Vital Signs Vital Signs: Vital Signs - Last 24 Hrs Temp Pulse Pulse Resp BP BP Pulse Ox 01/08/17 11:31 98.8 F 77 20 107/60 100 01/08/17 08:26 70 16 01/08/17 07:51 98.9 F 74 74 20 97/59 100 01/08/17 02:05 98.9 F 66 15 92/58 98 01/07/17 21:00 61 16 01/07/17 15:58 61 16 92/48 98 01/07/17 14:31 66 16 94/49 99 01/07/17 13:05 98.5 F 71 16 98/55 100 - General General Appearance: Alert, Oriented x3, Cooperative, Mild distress, Other (obese ) Limitations: No limitations - Head Head exam: Normal inspection - Eye Eye exam: Normal appearance - ENT ENT exam: Normal exam Ear exam: Normal external inspection Nasal Exam: Normal inspection Mouth exam: Normal external inspection - Neck Neck exam: Normal inspection, Full ROM. negative: Tenderness - Respiratory Respiratory exam: Normal lung sounds bilaterally. negative: Respiratory distress - Cardiovascular Cardiovascular Exam: Regular rate, Normal rhythm, Normal heart sounds - GI/Abdominal GI/Abdominal exam: Soft, Normal bowel sounds, Tenderness (mild in the epigastrium). negative: Distended, Guarding, Rebound, Rigid - Rectal Rectal exam: Deferred - exam: Deferred - Extremities Extremities exam: Normal inspection, Full ROM, Normal capillary refill. negative: Tenderness - Back Back exam: Reports: Normal inspection, Full ROM. Denies: CVA tenderness (R), CVA tenderness (L), Muscle spasm, Paraspinal tenderness, Rash noted, Tenderness , Vertebral tenderness - Neurological Neurological exam: Alert, Normal gait, Oriented X3 - Psychiatric Psychiatric exam: Normal affect, Normal mood - Skin Skin exam: Dry, Intact, Normal color, Warm Hospitalization - Hospitalization Admission Diagnosis: Pancreatitis - Problem List/Discharge Diagnosis (1) Abdominal pain Current Visit: Yes Status: Acute Discharge Diagnosis: Abdominal location: right upper quadrant Qualified Code(s): R10.11 - Right upper quadrant pain Base Code: R10.9 - UNSPECIFIED ABDOMINAL PAIN Comment: 01/07/17- discussed currently we do not see an etiology for patient's symtpoms. Discussed doing a CT with contrast to see if there is anything further to be noted. Mom and patient agrees. Spoke to Dr. Berrios after CT did not show anythign significant except small periumbilical hernia (not incarcerated) and bilateral non- obstructing kidney stones. Will trial overnight with pain medications and fluids to see if symtpoms improve, if not will transfer to [facility] to have GI and surgery see patient. 01/08- no significant change in symptoms. Patient states if anything, pain is worse. Attempted to trial off morphine to [place]. Will transfer for GI consult per prior plan since no improvement in symptoms. - Hospitalization Course Disposition: Acute Care Hospital Transfer Procedures: Imaging and X-Rays 01/07/17 12:46 ABDOMEN WWO CONTRAST [CT] Stat Abnormal Labs: Abnormal Lab Results 01/07/17 01/07/17 01/08/17 Range/Units 06:00 06:00 10:35 MPV 10.5 H (7.4-10.4) fl Gran % 44.9 L (47-80) % Lymphocytes % 47.5 H (16-45) % Chloride 108 H (98-107) mmol/L BUN 5 L (7-17) mg/dL Total Protein 6.2 L (6.3-8.2) gm/dL LDL Cholesterol [place] 119.3 H (0-100) mg/dL HDL Cholesterol 31 L (40-60) mg/dL Condition at Discharge: (2) Stable Discharge Diagnosis: 1) abdominal pain of unclear etiology Discharge Medications - Discharge Medications Home Medications: Ambulatory Orders Esomeprazole Magnesium [Nexium] 40 mg PO QD cap 04/11/16 [Last Taken 01/06/17] Control Implant 1 applic SC DAILY 01/05/17 [Last Taken 01/06/17] Hydrocodone/Acetaminophen [[place] 5mg/325mg] 1 - 2 each PO QID #10 tablet [Last Taken 01/06/17] Discharge Plan - Discharge Instructions Diet at Discharge: Other (NPO)
[2017-01-08] MEDS: MORPHINE SULFATE 5 MG/ML PFS IVP PRN (12:19)
== END 2017-01-08 13:22 | disposition short-term general hospital (02) ==
LOC: ER 09:30 → MEDSURG 12:10
PROVIDERS: ADMIT Family Medicine; ATTEND Family Medicine
DX: K85.90 Acute pancreatitis without necrosis or infection, unspecified (principal)
CPT/HCPCS: 99285 ×2; 96374; 96375; 83690 ×2; 85025 ×3; 86140; 80053 ×3; 81001; 84443; 80061; 81025; 76700; 74170; G0378 ×3; Q9967; J2405 ×2; J2270 ×3; 99217; 99220; C9113; J7030

== ENCOUNTER 2017-01-25 05:37 | Emergency (ER) | payer BC ==
--- NOTE | 2017-01-25 05:53 | Emergency Department Record ---
History of Present Illness - General Chief complaint: ENT Stated complaint: SORE THROAT,COUGH Time Seen by Provider: 01/25/17 05:46 Source: Patient Mode of Arrival: Ambulatory Limitations: No limitations - History of Present Illness Initial comments: 22 yo female presents with a sore throat since Friday. It was worse this morning. NO fevers. She has a mild dry cough. No nausea, vomiting or diarrhea. She does have a history of tonsillectomy in the past. She recently vacationed in [place]. No chest pain or leg swelling/calf pain. No rash. No abdomen pain. She recently was in the hospital for abdominal pain with pancreatitis. PCP [place]. MOHAMUD complaint: Sore throat Onset/Timin -: Days(s) Location: Throat Severity: Moderate Consistency: Constant Improves with: None Worsens with: Swallowing Context- Ear: Recent illness Associated Symptoms: Cough, Pain with swallowing, Rhinorrhea, Sore throat - Related Data Home Medications Medication Instructions Recorded Confirmed Last Taken Esomeprazole Magnesium [Nexium] 40 mg PO QD cap 04/11/16 01/25/17 01/24/17 Control Implant 1 applic SC DAILY 01/05/17 01/25/17 01/25/17 Previous Rx's Medication Instructions Recorded Azithromycin [Zithromax] 250 mg PO DAILY #4 tab 01/25/17 Allergies Allergy/AdvReac Type Severity Reaction Status Date / Time No Known Drug Allergies Allergy Verified 01/05/17 02:50 Travel Screening - Travel/Exposure Within Last 30 Days Have you traveled within the last 30 days?: Yes Location Detail:: [place] - Travel/Exposure Within Last Year Have you traveled outside the [place] in the last year?: Yes Location Detail:: [place] - Additonal Travel Details Have you been exposed to anyone with a communicable illness?: No - Travel Symptoms Symptom Screening: None Review of Systems Constitutional: Reports: Fever, Malaise. Denies: Chills Eyes: Denies: Eye discharge, Eye pain ENT: Reports: Congestion, Throat pain. Denies: Ear pain Respiratory: Reports: Cough (dry non productive) Cardiovascular: Denies: Chest pain, Syncope Endocrine: Denies: Fatigue Gastrointestinal: Reports: Abdominal pain. Denies: Diarrhea, Nausea, Vomiting Genitourinary: Denies: Dysuria, Urgency Musculoskeletal: Denies: Arthralgia, Back pain, Myalgia Skin: Denies: Bruising, Change in color, Rash Neurological: Denies: Confusion, Headache, Numbness, Weakness Psychiatric: Denies: Anxiety Hematological/Lymphatic: Denies: Blood Clots, Easy bleeding, Easy bruising Past Medical History - SOCIAL HISTORY Smoking Status: Never smoker Alcohol Use: Occasional Drug Use: None - RESPIRATORY Hx Respiratory Disorders: No - CARDIOVASCULAR Hx Cardio Disorders: No - NEURO Hx Neuro Disorders: No - GI Hx GI Disorders: Yes Hx Abdominal Pain: Yes Hx Reflux: Yes Hx Ulcer: Yes - Hx Genitourinary Disorders: Yes Hx Kidney Stones: Yes Hx UTI: Yes (3 uti in past 6 months) - ENDOCRINE Hx Endocrine Disorders: No - MUSCULOSKELETAL Hx Musculoskeletal Disorders: No - PSYCH Hx Psych Problems: No - HEMATOLOGY/ONCOLOGY Hx Hematology/Oncology Disorders: No Family Medical History Any Significant Family History?: Yes Hx Anxiety: Mother Hx Depression: Mother Hx Heart Disease: Grandparents Hx HTN: Grandparents Physical Exam - General General Appearance: Alert, Oriented x3, Cooperative, No acute distress, Other ( No acute discomfort, well appearing) - Head Head exam: Normal inspection - Eye Eye exam: Normal appearance. negative: Conjunctival injection, Periorbital swelling - ENT ENT exam: Normal exam, TM's normal bilaterally. negative: Normal orophraynx Ear exam: Normal external inspection. negative: External canal tenderness Nasal Exam: Normal inspection. negative: Discharge, Sinus tenderness Mouth exam: Normal external inspection, Tongue normal Teeth exam: Normal inspection. negative: Dental caries Throat exam: Tonsillar erythema (pharyngeal erythema, S/P T and A). negative: Tonsillomegaly, Tonsillar exudate, R peritonsillar mass, L peritonsillar mass - Neck Neck exam: Normal inspection, Full ROM. negative: Lymphadenopathy, Meningismus , Tenderness - Respiratory Respiratory exam: Normal lung sounds bilaterally. negative: Respiratory distress, Rhonchi, Stridor, Wheezes - Cardiovascular Cardiovascular Exam: Regular rate, Normal rhythm, Normal heart sounds - GI/Abdominal GI/Abdominal exam: Soft. negative: Tenderness - Rectal Rectal exam: Deferred - exam: Deferred - Extremities Extremities exam: Normal inspection, Full ROM, Normal capillary refill. negative: Calf tenderness, Pedal edema, Tenderness - Back Back exam: Reports: Normal inspection, Full ROM. Denies: Muscle spasm, Rash noted, Tenderness - Neurological Neurological exam: Alert, Normal gait, Oriented X3 - Psychiatric Psychiatric exam: Normal affect, Normal mood. negative: Agitated, Anxious - Skin Skin exam: Dry, Intact, Normal color, Warm Course Vital Signs 01/25/17 05:39 Temperature 98.5 F Pulse Rate 100 H Respiratory 20 Rate Blood Pressure 130/79 Pulse Ox 98 - Reevaluation(s) Reevaluation #1: Strep screen sent 01/25/17 05:58 Reevaluation #2: The strep is negative 01/25/17 06:19 Disposition Disposition: Discharge Clinical Impression: Pharyngitis Qualifiers: Pharyngitis/tonsillitis etiology: unspecified etiology Qualified Code(s): J02.9 - Acute pharyngitis, unspecified Disposition: Home, Self-Care Condition: (1) Good Instructions: Pharyngitis (ED) Additional Instructions: Stay well hydrated and rest Return in the next 1-2 days if not improving or immediately if worse Call your doctor for close follow up this week Prescriptions: Azithromycin [Zithromax] 250 mg PO DAILY #4 tab Forms: Patient Portal Access Time of Disposition: 06:21 Quality - Quality Measures Quality Measures: N/A - Blood Pressure Screening Does Patient Have Any of the Following: No Blood Pressure Classification: Pre-Hypertensive BP Reading Systolic Measurement: 130 Diastolic Measurement: 79 Screening for High Blood Pressure: < Pre-Hypertensive BP, F/U Documented > [ G8950] Pre-Hypertensive Follow-up Interventions: Referral to alternative/primary care provider.
[2017-01-25] MEDS ORDERED: DEXAMETHASONE 4 MG/ML 1ML VIAL PO ONE (05:54)
[2017-01-25] MEDS ORDERED: AZITHROMYCIN 500 MG TABLET PO ONE (06:22)
== END 2017-01-25 06:30 | disposition home or self-care (01) ==
LOC: ER 05:37
DX: J02.9 Acute pharyngitis, unspecified (principal)
CPT/HCPCS: 87880; 99282

== ENCOUNTER 2017-03-20 21:19 | Emergency (ER) | payer BC ==
[2017-03-20] MEDS ORDERED: 0.9 % SODIUM CHLORIDE 1,000 ML BAG IV ONE (21:54)
[2017-03-20] MEDS ORDERED: ONDANSETRON HCL IV 4 MG/2 ML VIAL IV ONE (21:54)
[2017-03-20] MEDS ORDERED: HYDROMORPHONE HCL 1MG/ML **SYRINGE IVP ONE (21:56)
[2017-03-20 22:05] LABS: BASO % 0.4 % (0-6); EOS % 1.3 % (0-6); GRAN % 51.3 % (47-80); HEMATOCRIT 40.2 % (35.0-47.0); HEMOGLOBIN 13.9 gm/dl (11.6-16.0); LYMPH % 38.4 % (16-45); MEAN CELL VOLUME 85.7 fl (81-97); MEAN CORPUSCULAR HEMOGLOBIN 29.6 pg (27-33); MEAN CORPUSCULAR HGB CONC 34.6 g/dl (32-36); MEAN PLATELET VOLUME 10.2 fl (7.4-10.4); MONO % 8.6 % (0-9); PLATELET COUNT 370 K/uL (130-400); RED BLOOD COUNT 4.69 M/uL (3.80-5.40); RED CELL DISTRIBUTION WIDTH 12.5 % (11.5-14.5); URINE BILIRUBIN NEGATIVE (NEGATIVE); URINE BLOOD MODERATE (NEGATIVE); URINE COLOR YELLOW; URINE GLUCOSE (UA) NEGATIVE (NEGATIVE); URINE KETONE NEGATIVE (NEGATIVE); URINE LEUKOCYTE ESTERASE TRACE (NEGATIVE); URINE NITRITE NEGATIVE (NEGATIVE); URINE PROTEIN NEGATIVE (NEGATIVE); URINE UROBILINOGEN 0.2 E.U./dL (0.20 - 1.00); WHITE BLOOD COUNT W/O DIFF 9.7 K/uL (4.2-12.2)
[2017-03-20] MEDS ORDERED: MORPHINE SULFATE 5 MG/ML PFS IVP ONE (22:08)
[2017-03-20 22:09] LABS: URINE APPEARANCE SL CLOUDY
[2017-03-20 22:11] LABS: HCG,QUALITATIVE URINE NEGATIVE (NEGATIVE)
[2017-03-20 22:14] LABS: URINE EPITHELIAL CELLS 0 - 2 (FEW); URINE WBC 0 - 2 (0-2/hpf)
[2017-03-20 22:15] LABS: URINE AMORPHOUS SEDIMENT 2+; URINE BACTERIA FEW; URINE RBC 0 - 2 (NONE SEEN)
[2017-03-20 22:19] LABS: ALB/GLOB RATIO 1.6 (1.1-1.8); ALBUMIN 4.6 g/dL (4.0-5.0); ALKALINE PHOSPHATASE 78 U/L (35-104); ALT/SGPT 15 U/L (<33); AST/SGOT 14 U/L (10.0-35.0); BLOOD UREA NITROGEN 14 mg/dL (6-20); CREATININE 0.7 mg/dL (0.5-0.9); EST GLOMERULAR FILTRATION RATE > 60 mL/min; GLUCOSE,RANDOM 101 mg/dL (74-109); LIPASE 28 U/L (13-60); TOTAL PROTEIN 7.4 g/dL (6.6-8.7)
[2017-03-20] MEDS ORDERED: MAGNESIUM HYDROXIDE/AL HYDROX 30 ML, LIDOCAINE VISC 2% 200 MG PO ONE ×2 (22:29)
--- NOTE | 2017-03-20 23:06 | Emergency Department Record ---
History of Present Illness - General Chief Complaint: Abdominal Pain Stated Complaint: ABD PAIN Time Seen by Provider: 03/20/17 21:47 Source: Patient Mode of Arrival: Ambulatory Limitations: No limitations - History of Present Illness Initial Comments: pt has has midepigastric pain that feels like her previous pancreatitis for 4 days. she had a gi workup a few months ago and was found to have "swelling" of her stomach and duodenum. there was no etiology found for pancreatitis except that she had drank alcohol as it was her 22st bday last time. this time pt denies drinking any alcohol. pt has n/v but no c/d and no change in color of stool MD Complaint: Abdominal pain Onset/Timin -: Days(s) Location: Epigastric Radiation: None Migration to: No migration Severity: Moderate Quality: Sharp Consistency: Constant Improves With: Nothing Worsens With: Eating Associated Symptoms: Nausea Treatments Prior to Arrival: Antacids - Related Data Patient : No Allergies Allergy/AdvReac Type Severity Reaction Status Date / Time No Known Drug Allergies Allergy Verified 01/05/17 02:50 Travel Screening - Travel/Exposure Within Last 30 Days Have you traveled within the last 30 days?: No - Travel/Exposure Within Last Year Have you traveled outside the [place] in the last year?: No - Additonal Travel Details Have you been exposed to anyone with a communicable illness?: No Review of Systems Reviewed: No additional complaints except as noted below Constitutional: Reports: As per HPI. Denies: Chills, Fever, Malaise, Night sweats, Weakness, Weight change Eyes: Reports: As per HPI. Denies: Eye discharge, Eye pain, Photophobia, Vision change ENT: Reports: As per HPI. Denies: Congestion, Dental pain, Ear pain, Epistaxis , Hearing loss, Throat pain Respiratory: Reports: As per HPI. Denies: Cough, Dyspnea, Hemoptysis, Stridor, Wheezes Cardiovascular: Reports: As per HPI. Denies: Arrhythmia, Chest pain, Dyspnea on exertion, Edema, Murmurs, Orthopnea, Palpitations, Paroxysmal nocturnal dyspnea, Rheumatic Fever, Syncope Endocrine: Reports: As per HPI. Denies: Fatigue, Heat or cold intolerance, Polydipsia, Polyuria Gastrointestinal: Reports: As per HPI. Denies: Abdominal pain, Constipation, Diarrhea, Hematemesis, Hematochezia, Melena, Nausea, Vomiting Genitourinary: Reports: As per HPI. Denies: Abnormal menses, Discharge, Dyspareunia, Dysuria, Frequency, Hematuria, Incontinence, Retention, Urgency Musculoskeletal: Reports: As per HPI. Denies: Arthralgia, Back pain, Gout, Joint swelling, Myalgia, Neck pain Skin: Reports: As per HPI. Denies: Bruising, Change in color, Change in hair/ nails, Lesions, Pruritus, Rash Neurological: Reports: As per HPI. Denies: Abnormal gait, Confusion, Headache, Numbness, Paresthesias, Seizure, Tingling, Tremors, Vertigo, Weakness Psychiatric: Reports: As per HPI. Denies: Anxiety, Auditory hallucinations, Depression, Homicidal thoughts, Suicidal thoughts, Visual hallucinations Hematological/Lymphatic: Reports: As per HPI. Denies: Anemia, Blood Clots, Easy bleeding, Easy bruising, Swollen glands Past Medical History - SOCIAL HISTORY Smoking Status: Never smoker Alcohol Use: None Drug Use: None - RESPIRATORY Hx Respiratory Disorders: No - CARDIOVASCULAR Hx Cardio Disorders: No - NEURO Hx Neuro Disorders: No - GI Hx GI Disorders: Yes Hx Abdominal Pain: Yes Hx Reflux: Yes Hx Ulcer: Yes - Hx Genitourinary Disorders: Yes Hx Kidney Stones: Yes Hx UTI: Yes (3 uti in past 6 months) - ENDOCRINE Hx Endocrine Disorders: No - MUSCULOSKELETAL Hx Musculoskeletal Disorders: No - PSYCH Hx Psych Problems: No - HEMATOLOGY/ONCOLOGY Hx Hematology/Oncology Disorders: No Family Medical History Any Significant Family History?: Yes Hx Anxiety: Mother Hx Depression: Mother Hx Heart Disease: Grandparents Hx HTN: Grandparents Physical Exam - General General Appearance: Alert, Oriented x3, Cooperative, Mild distress - Head Head exam: Normal inspection - Eye Eye exam: Normal appearance, PERRL, EOMI Pupils: Normal accommodation - ENT ENT exam: Normal exam, Mucous membranes moist, Normal external ear exam, Normal orophraynx Ear exam: Normal external inspection. negative: External canal tenderness Nasal Exam: Normal inspection. negative: Discharge, Sinus tenderness Mouth exam: Normal external inspection, Tongue normal Teeth exam: Normal inspection. negative: Dental caries Throat exam: Normal inspection. negative: Tonsillar erythema, Tonsillar exudate - Neck Neck exam: Normal inspection, Full ROM. negative: Tenderness - Respiratory Respiratory exam: Normal lung sounds bilaterally. negative: Respiratory distress - Cardiovascular Cardiovascular Exam: Regular rate, Normal rhythm, Normal heart sounds - GI/Abdominal GI/Abdominal exam: Soft, Normal bowel sounds, Tenderness - Rectal Rectal exam: Deferred - exam: Deferred - Extremities Extremities exam: Normal inspection, Full ROM, Normal capillary refill. negative: Tenderness - Back Back exam: Reports: Normal inspection, Full ROM. Denies: Muscle spasm, Rash noted, Tenderness - Neurological Neurological exam: Alert, Normal gait, Oriented X3, Reflexes normal - Psychiatric Psychiatric exam: Normal affect, Normal mood - Skin Skin exam: Dry, Intact, Normal color, Warm Course Vital Signs 03/20/17 21:21 Temperature 98.5 F Pulse Rate 93 H Respiratory 20 Rate Blood Pressure 133/74 Pulse Ox 98 - Reevaluation(s) Reevaluation #1: 03/20/17 23:11 pt feels better Medical Decision Making - Lab Data Result diagrams: 03/20/17 21:45 03/20/17 21:45 Lab Results 03/20/17 03/20/17 03/20/17 Range/Units 21:45 21:45 21:45 WBC 9.7 (4.2-12.2) K/uL RBC 4.69 (3.80-5.40) M/uL Hgb 13.9 (11.6-16.0) gm/dl Hct 40.2 (35.0-47.0) % MCV 85.7 (81-97) fl MCH 29.6 (27-33) pg MCHC 34.6 (32-36) g/dl RDW 12.5 (11.5-14.5) % Plt Count 370 (130-400) K/uL MPV 10.2 (7.4-10.4) fl Gran % 51.3 (47-80) % Lymphocytes % 38.4 (16-45) % Monocytes % 8.6 (0-9) % Eosinophils % 1.3 (0-6) % Basophils % 0.4 (0-6) % Sodium 141 (136-145) mmol/L Potassium 3.6 (3.4-4.5) mmol/L Chloride 101 (98-107) mmol/L Carbon Dioxide 26.0 (22-29) mmol/L Anion Gap 14.0 (7-16) BUN 14 (6-20) mg/dL Creatinine 0.7 (0.5-0.9) mg/dL Estimated GFR > 60 mL/min Random Glucose 101 (74-109) mg/dL Calcium 9.5 (8.6-10.0) mg/dL Total Bilirubin 0.20 (0.2-1.0) mg/dL AST 14 (10.0-35.0) U/L ALT 15 (<33) U/L Alkaline Phosphatase 78 (35-104) U/L Total Protein 7.4 (6.6-8.7) g/dL Albumin 4.6 (4.0-5.0) g/dL Globulin 2.8 (1.4-4.8) gm/dL Albumin/Globulin Ratio 1.6 (1.1-1.8) Lipase 28 (13-60) U/L Urine Color Yellow Urine Appearance Sl cloudy Urine pH 7.5 (5.0-8.0) Ur Specific Flippin 1.010 (1.002-1.030) Urine Protein Negative (NEGATIVE) Urine Glucose (UA) Negative (NEGATIVE) Urine Ketones Negative (NEGATIVE) Urine Blood Moderate (NEGATIVE) Urine Nitrite Negative (NEGATIVE) Urine Bilirubin Negative (NEGATIVE) Urine Urobilinogen 0.2 (0.20 - 1.00) E.U./dL Ur Leukocyte Esterase Trace H (NEGATIVE) Urine RBC 0 - 2 (NONE SEEN) Urine WBC 0 - 2 (0-2/hpf) Ur Epithelial Cells 0 - 2 (FEW) Amorphous Sediment 2+ Urine Bacteria Few Urine HCG, Qual Negative (NEGATIVE) Disposition Disposition: Discharge Clinical Impression: Gastritis Qualifiers: Gastritis type: unspecified gastritis Chronicity: acute Gastritis bleeding: without bleeding Qualified Code(s): K29.00 - Acute gastritis without bleeding Disposition: Home, Self-Care Condition: (1) Good Instructions: Gastritis (ED) Additional Instructions: follow up with family doctor and with dr kendrick. return sooner if worse. Referrals: SWETA KENDRICK [MEDICAL DOCTOR] - Forms: Patient Portal Access Quality - Quality Measures Quality Measures: N/A - Blood Pressure Screening Does Patient Have Any of the Following: No Blood Pressure Classification: Pre-Hypertensive BP Reading Systolic Measurement: 133 Diastolic Measurement: 74 Screening for High Blood Pressure: < Pre-Hypertensive BP, F/U Documented > [ G8950] Pre-Hypertensive Follow-up Interventions: Follow-up with rescreen every year.
== END 2017-03-20 23:30 | disposition home or self-care (01) ==
LOC: ER 21:19
DX: K29.00 Acute gastritis without bleeding (principal); R11.0 Nausea; R10.13 Epigastric pain
CPT/HCPCS: 99284 ×2; 96374; 96375; 83690; 85025; 80053; 81001; 81025; J2405; J2270; J7030

== ENCOUNTER 2018-07-03 21:34 | Emergency (ER) | payer BC ==
[2018-07-03] MEDS ORDERED: KETOROLAC 30 MG/ML VIAL IVP ONE (21:44)
--- NOTE | 2018-07-03 21:49 | Emergency Department Record ---
History of Present Illness - General Chief complaint: Flank Pain Stated complaint: KIDNEY PAIN/VOMITING Time Seen by Provider: 07/03/18 21:36 Source: Patient Mode of Arrival: Ambulatory Limitations: No limitations - History of Present Illness Initial comments: 23 yo female presents to ED for evaluation of sudden-onset right sided flank pain symptoms that began approximately 45 minutes ago. Patient reports a history of kidney stones with similar symptoms. Patient reports vomiting symptoms, denies fevers, chills, or abdominal pain symptoms. Patient denies hematuria or dysuria symptoms. MD Complaint: Dysuria Onset/Timin -: Minutes(s) Radiation: R flank Severity: Severe Severity scale (1-10): 8 Quality: Sharp, Stabbing Consistency: Constant Improves with: None Worsens with: None Patient : No (Nexplanon implant) Associated Symptoms: Nausea/vomiting - Related Data Sexually active: Yes Previous Rx's Medication Instructions Recorded Ibuprofen [Motrin 600Mg] 600 mg PO Q6H #30 tablet 07/03/18 Allergies Allergy/AdvReac Type Severity Reaction Status Date / Time No Known Drug Allergies Allergy Unverified 07/18/17 14:10 Travel Screening - Travel/Exposure Within Last 30 Days Have you traveled within the last 30 days?: No - Travel Symptoms Symptom Screening: None Review of Systems Constitutional: Denies: Chills, Fever, Malaise, Night sweats Eyes: Denies: Eye discharge, Eye pain ENT: Denies: Congestion, Ear pain, Epistaxis Respiratory: Denies: Cough, Dyspnea Cardiovascular: Denies: Chest pain, Dyspnea on exertion Endocrine: Denies: Fatigue, Heat or cold intolerance Gastrointestinal: Reports: Nausea, Vomiting. Denies: Abdominal pain Genitourinary: Denies: Dysuria, Incontinence, Retention Musculoskeletal: Reports: Back pain (right sided flank pain). Denies: Arthralgia Skin: Denies: Bruising, Change in color Neurological: Denies: Abnormal gait, Confusion, Headache, Seizure Psychiatric: Denies: Anxiety Hematological/Lymphatic: Denies: Anemia, Blood Clots Past Medical History - SOCIAL HISTORY Smoking Status: Never smoker Drug Use: None - RESPIRATORY Hx Respiratory Disorders: No - CARDIOVASCULAR Hx Cardio Disorders: No - NEURO Hx Neuro Disorders: No - GI Hx GI Disorders: Yes Hx Abdominal Pain: Yes Hx Reflux: Yes Hx Ulcer: Yes - Hx Genitourinary Disorders: Yes Hx Kidney Stones: Yes Hx UTI: Yes (3 uti in past 6 months) - ENDOCRINE Hx Endocrine Disorders: No - MUSCULOSKELETAL Hx Musculoskeletal Disorders: No - PSYCH Hx Psych Problems: No - HEMATOLOGY/ONCOLOGY Hx Hematology/Oncology Disorders: No Family Medical History Hx Anxiety: Mother Hx Depression: Mother Hx Heart Disease: Grandparents Hx HTN: Grandparents Physical Exam - General General Appearance: Alert, Oriented x3, Cooperative, Moderate distress Limitations: No limitations - Head Head exam: Atraumatic, Normocephalic, Normal inspection Head exam detail: negative: Abrasion, Contusion, Fernandez's sign, General tenderness, Hematoma, Laceration - Eye Eye exam: Normal appearance. negative: Conjunctival injection, Periorbital swelling, Periorbital tenderness, Scleral icterus - ENT Ear exam: negative: Auricular hematoma, Auricular trauma Nasal Exam: negative: Active bleeding, Discharge, Dried blood, Foreign body Mouth exam: negative: Drooling, Laceration, Muffled voice, Tongue elevation - Neck Neck exam: Normal inspection. negative: Meningismus, Tenderness - Respiratory Respiratory exam: Normal lung sounds bilaterally. negative: Rales, Respiratory distress, Rhonchi, Stridor - Cardiovascular Cardiovascular Exam: Normal rhythm, Normal heart sounds, Tachycardia - GI/Abdominal GI/Abdominal exam: Soft. negative: Rebound, Rigid, Tenderness - Rectal Rectal exam: Deferred - exam: Deferred - Extremities Extremities exam: Normal inspection. negative: Pedal edema, Tenderness - Back Back exam: Reports: CVA tenderness (R). Denies: CVA tenderness (L) - Neurological Neurological exam: Alert, Normal gait, Oriented X3 - Psychiatric Psychiatric exam: Normal affect, Normal mood - Skin Skin exam: Normal color. negative: Abrasion Type of lesion: negative: abrasion Course Vital Signs 07/03/18 21:39 Temperature 97.9 F Pulse Rate 136 H Respiratory 18 Rate Blood Pressure 132/74 Pulse Ox 99 - Reevaluation(s) Reevaluation #1: 07/03/18 21:47 Patient was seen and examined, examination appears c/w possible kidney stone right. Mother reports that the patient has undergone >20 CT imaging studies, "cannot have anymore". Will obtain laboratory studies and UA, perform bedside US as formal US is not available at this time. Will administer Toradol for discomfort as well and reassess. Reevaluation #2: 07/03/18 22:13 Bedside renal US was performed, no significant hydronephrosis is identified on examination of both kidneys. Reevaluation #3: 07/03/18 22:32 Laboratory studies were reviewed and are grossly unremarkable for an acute process. No hematuria to suggest ureteral calculus. Patient reports significant continued pain on re-examination after returning from the bathroom, will administer valium IV and reassess. Reevaluation #4: 07/03/18 23:09 Patient reports that her pain symptoms are improved, appears stable for discharge at this time. Medical Decision Making - Lab Data Result diagrams: 07/03/18 21:45 07/03/18 21:45 Disposition Disposition: Discharge Clinical Impression: Flank pain Disposition: Home, Self-Care Condition: (2) Stable Instructions: Flank Pain (ED) Additional Instructions: Return to ED if your symptoms worsen or if you have any concerns. Motrin 600 mg as directed. Follow-up with your family doctor in 3-5 days as directed. Prescriptions: Ibuprofen [Motrin 600Mg] 600 mg PO Q6H #30 tablet Forms: Patient Portal Access Time of Disposition: 22:33 Quality - Quality Measures Quality Measures: N/A - Blood Pressure Screening Does Patient Have Any of the Following: No Blood Pressure Classification: Pre-Hypertensive BP Reading Systolic Measurement: 128 Diastolic Measurement: 85 Screening for High Blood Pressure: < Pre-Hypertensive BP, F/U Documented > [ G8950] Pre-Hypertensive Follow-up Interventions: Referral to alternative/primary care provider.
[2018-07-03 21:55] LABS: BASO % 0.3 % (0-6); EOS % 1.5 % (0-6); GRAN % 55.9 % (47-80); HEMATOCRIT 43.7 % (35.0-47.0); HEMOGLOBIN 14.8 gm/dl (11.6-16.0); LYMPH % 35.8 % (16-45); MEAN CELL VOLUME 87.2 fl (81-97); MEAN CORPUSCULAR HEMOGLOBIN 29.5 pg (27-33); MEAN CORPUSCULAR HGB CONC 33.9 g/dl (32-36); MEAN PLATELET VOLUME 10.2 fl (7.4-10.4); MONO % 6.5 % (0-9); PLATELET COUNT 361 K/uL (130-400); RED BLOOD COUNT 5.01 M/uL (3.80-5.40); RED CELL DISTRIBUTION WIDTH 12.8 % (11.5-14.5)
[2018-07-03] MEDS ORDERED: 0.9 % SODIUM CHLORIDE 1000ML 1,000 ML IV SCH (22:00)
[2018-07-03 22:08] LABS: BLOOD UREA NITROGEN 13 mg/dL (6-20); CREATININE 0.7 mg/dL (0.5-0.9); EST GLOMERULAR FILTRATION RATE > 60 mL/min
[2018-07-03 22:09] LABS: TOTAL PROTEIN 8.1 g/dL (6.6-8.7)
[2018-07-03 22:11] LABS: GLUCOSE,RANDOM 119 mg/dL (74-109)
[2018-07-03 22:14] LABS: ALB/GLOB RATIO 1.6 (1.1-1.8); ALKALINE PHOSPHATASE 84 U/L (45-87); ALT/SGPT 15 U/L (<33); AST/SGOT 14 U/L (10.0-35.0)
[2018-07-03] MEDS ORDERED: ONDANSETRON HCL IV 4 MG/2 ML VIAL IVP ONE (22:21)
[2018-07-03 22:23] LABS: URINE APPEARANCE CLEAR; URINE BILIRUBIN NEGATIVE (NEGATIVE); URINE BLOOD NEGATIVE (NEGATIVE); URINE COLOR YELLOW; URINE GLUCOSE (UA) NEGATIVE (NEGATIVE); URINE KETONE NEGATIVE (NEGATIVE); URINE LEUKOCYTE ESTERASE NEGATIVE (NEGATIVE); URINE NITRITE NEGATIVE (NEGATIVE); URINE PROTEIN NEGATIVE (NEGATIVE); URINE UROBILINOGEN 0.2 E.U./dL (0.20 - 1.00)
[2018-07-03 22:25] LABS: AMPHETAMINE SCREEN URINE NOT DETECTED; BARBITURATE SCREEN URINE NOT DETECTED; BENZODIAZEPINE SCREEN URINE NOT DETECTED; COCAINE SCREEN URINE NOT DETECTED; METHADONE SCREEN URINE NOT DETECTED; METHAMPHETAMINE SCREEN NOT DETECTED; OPIATE SCREEN URINE NOT DETECTED; OXYCODONE SCREEN URINE NOT DETECTED; PHENCYCLIDINE SCREEN URINE NOT DETECTED; PROPOXYPHENE SCREEN URINE NOT DETECTED; THC SCREEN URINE NOT DETECTED; TRICYCLIC ANTIDEPRESSANT SCRN NOT DETECTED
[2018-07-03 22:25] LABS: HCG,QUALITATIVE URINE NEGATIVE (NEGATIVE)
[2018-07-03] MEDS ORDERED: DIAZEPAM (VALIUM) 5MG/ML **10ML VIAL IVP ONE (22:35)
== END 2018-07-03 23:06 | disposition home or self-care (01) ==
LOC: ER 21:34
DX: R10.31 Right lower quadrant pain (principal); R11.11 Vomiting without nausea; R30.0 Dysuria; F17.210 Nicotine dependence, cigarettes, uncomplicated; Z87.442 Personal history of urinary calculi
CPT/HCPCS: 80053; 80305; 81003; 81025; 85025; 96374; 96375; 99284; J1885; J2405; J3360; J7030

== ENCOUNTER 2018-07-18 16:42 | Emergency (ER) | payer BC ==
[2018-07-18 16:55] LABS: URINE APPEARANCE CLEAR; URINE BILIRUBIN NEGATIVE (NEGATIVE); URINE BLOOD LARGE (NEGATIVE); URINE COLOR YELLOW; URINE GLUCOSE (UA) NEGATIVE (NEGATIVE); URINE KETONE NEGATIVE (NEGATIVE); URINE NITRITE NEGATIVE (NEGATIVE); URINE PROTEIN NEGATIVE (NEGATIVE); URINE UROBILINOGEN 0.2 E.U./dL (0.20 - 1.00)
[2018-07-18 17:07] LABS: URINE LEUKOCYTE ESTERASE TRACE (NEGATIVE); URINE WBC 0 - 2 (0-2/hpf)
[2018-07-18 17:08] LABS: HCG,QUALITATIVE URINE NEGATIVE (NEGATIVE); URINE AMORPHOUS SEDIMENT 3+
--- NOTE | 2018-07-18 17:17 | Emergency Department Record ---
History of Present Illness - General Chief complaint: Female Urogenital Problem Stated complaint: UTI? Time Seen by Provider: 07/18/18 16:58 Source: Patient Mode of Arrival: Ambulatory Limitations: No limitations - History of Present Illness Initial comments: pt has dysuria , frequency, urgency, slight nausea. it feels like previous uti. no n/v or fever MD Complaint: Dysuria Onset/Timin -: Days(s) Severity: Moderate Severity scale (1-10): 6 Quality: Aching, Burning Consistency: Constant Improves with: None Worsens with: Urination LMP Date: 07/02/18 Gestational Age (wks) based on LMP: 2 Associated Symptoms: Dysuria - Related Data Sexually active: Yes Previous Rx's Medication Instructions Recorded Cephalexin [Keflex] 500 mg PO BID #6 cap 07/18/18 Allergies Allergy/AdvReac Type Severity Reaction Status Date / Time No Known Drug Allergies Allergy Verified 07/18/18 16:49 Travel Screening - Travel/Exposure Within Last 30 Days Have you traveled within the last 30 days?: No - Travel/Exposure Within Last Year Have you traveled outside the [place] in the last year?: No - Additonal Travel Details Have you been exposed to anyone with a communicable illness?: No - Travel Symptoms Symptom Screening: None Review of Systems Reviewed: No additional complaints except as noted below Constitutional: Reports: As per HPI. Denies: Chills, Fever, Malaise, Night sweats, Weakness, Weight change Eyes: Reports: As per HPI. Denies: Eye discharge, Eye pain, Photophobia, Vision change ENT: Reports: As per HPI. Denies: Congestion, Dental pain, Ear pain, Epistaxis , Hearing loss, Throat pain Respiratory: Reports: As per HPI. Denies: Cough, Dyspnea, Hemoptysis, Stridor, Wheezes Cardiovascular: Reports: As per HPI. Denies: Arrhythmia, Chest pain, Dyspnea on exertion, Edema, Murmurs, Orthopnea, Palpitations, Paroxysmal nocturnal dyspnea, Rheumatic Fever, Syncope Endocrine: Reports: As per HPI. Denies: Fatigue, Heat or cold intolerance, Polydipsia, Polyuria Gastrointestinal: Reports: As per HPI. Denies: Abdominal pain, Constipation, Diarrhea, Hematemesis, Hematochezia, Melena, Nausea, Vomiting Genitourinary: Reports: As per HPI, Dysuria, Frequency, Urgency. Denies: Abnormal menses, Discharge, Dyspareunia, Hematuria, Incontinence, Retention Musculoskeletal: Reports: As per HPI. Denies: Arthralgia, Back pain, Gout, Joint swelling, Myalgia, Neck pain Skin: Reports: As per HPI. Denies: Bruising, Change in color, Change in hair/ nails, Lesions, Pruritus, Rash Neurological: Reports: As per HPI. Denies: Abnormal gait, Confusion, Headache, Numbness, Paresthesias, Seizure, Tingling, Tremors, Vertigo, Weakness Psychiatric: Reports: As per HPI. Denies: Anxiety, Auditory hallucinations, Depression, Homicidal thoughts, Suicidal thoughts, Visual hallucinations Hematological/Lymphatic: Reports: As per HPI. Denies: Anemia, Blood Clots, Easy bleeding, Easy bruising, Swollen glands Past Medical History - SOCIAL HISTORY Smoking Status: Never smoker Alcohol Use: None Drug Use: None - RESPIRATORY Hx Respiratory Disorders: No - CARDIOVASCULAR Hx Cardio Disorders: No - NEURO Hx Neuro Disorders: No - GI Hx GI Disorders: Yes Hx Abdominal Pain: Yes Hx Reflux: Yes Hx Ulcer: Yes - Hx Genitourinary Disorders: Yes Hx Kidney Stones: Yes Hx UTI: Yes (3 uti in past 6 months) - ENDOCRINE Hx Endocrine Disorders: No - MUSCULOSKELETAL Hx Musculoskeletal Disorders: No - PSYCH Hx Psych Problems: No - HEMATOLOGY/ONCOLOGY Hx Hematology/Oncology Disorders: No Family Medical History Any Significant Family History?: Yes Hx Anxiety: Mother Hx Depression: Mother Hx Heart Disease: Grandparents Hx HTN: Grandparents Physical Exam - General General Appearance: Alert, Oriented x3, Cooperative, No acute distress - Head Head exam: Normal inspection - Eye Eye exam: Normal appearance, PERRL, EOMI Pupils: Normal accommodation - ENT ENT exam: Normal exam, Mucous membranes moist, Normal external ear exam, Normal orophraynx Ear exam: Normal external inspection. negative: External canal tenderness Nasal Exam: Normal inspection. negative: Discharge, Sinus tenderness Mouth exam: Normal external inspection, Tongue normal Teeth exam: Normal inspection. negative: Dental caries Throat exam: Normal inspection. negative: Tonsillar erythema, Tonsillar exudate - Neck Neck exam: Normal inspection, Full ROM. negative: Tenderness - Respiratory Respiratory exam: Normal lung sounds bilaterally. negative: Respiratory distress - Cardiovascular Cardiovascular Exam: Regular rate, Normal rhythm, Normal heart sounds - GI/Abdominal GI/Abdominal exam: Soft, Normal bowel sounds. negative: Tenderness - Rectal Rectal exam: Deferred - exam: Deferred - Extremities Extremities exam: Normal inspection, Full ROM, Normal capillary refill. negative: Tenderness - Back Back exam: Reports: Normal inspection, Full ROM. Denies: Muscle spasm, Rash noted, Tenderness - Neurological Neurological exam: Alert, CN II-XII intact, Normal gait, Oriented X3 - Psychiatric Psychiatric exam: Normal affect, Normal mood - Skin Skin exam: Dry, Intact, Normal color, Warm Course Vital Signs 07/18/18 16:51 Pulse Rate [ 103 H Pulse Ox Probe] Respiratory 16 Rate Blood Pressure 120/81 [Left Arm] Pulse Ox 99 Medical Decision Making - Lab Data Lab Results 07/18/18 Range/Units 16:55 Urine Color Yellow Urine Appearance Clear Urine pH 6.5 (5.0-8.0) Ur Specific [place] 1.025 (1.002-1.030) Urine Protein Negative (NEGATIVE) Urine Glucose (UA) Negative (NEGATIVE) Urine Ketones Negative (NEGATIVE) Urine Blood Large H (NEGATIVE) Urine Nitrite Negative (NEGATIVE) Urine Bilirubin Negative (NEGATIVE) Urine Urobilinogen 0.2 (0.20 - 1.00) E.U./dL Ur Leukocyte Esterase Trace H (NEGATIVE) Urine RBC 7 - 10 (NONE SEEN) Urine WBC 0 - 2 (0-2/hpf) Ur Epithelial Cells 3 - 6 (FEW) Amorphous Sediment 3+ Urine HCG, Qual Negative (NEGATIVE) Disposition Disposition: Discharge Clinical Impression: UTI (urinary tract infection) Qualifiers: Urinary tract infection type: acute cystitis Hematuria presence: with hematuria Qualified Code(s): N30.01 - Acute cystitis with hematuria Disposition: Home, Self-Care Condition: (1) Good Instructions: Urinary Tract Infection in Women (ED) Additional Instructions: follow up with family doctor. return sooner if worse. push fluids. Prescriptions: Cephalexin [Keflex] 500 mg PO BID #6 cap Quality - Quality Measures Quality Measures: N/A - Blood Pressure Screening Does Patient Have Any of the Following: No Blood Pressure Classification: Pre-Hypertensive BP Reading Systolic Measurement: 120 Diastolic Measurement: 81 Screening for High Blood Pressure: < Pre-Hypertensive BP, F/U Documented > [ G8950] Pre-Hypertensive Follow-up Interventions: Follow-up with rescreen every year.
== END 2018-07-18 17:22 | disposition home or self-care (01) ==
LOC: ER 16:42
DX: N39.0 Urinary tract infection, site not specified (principal)
CPT/HCPCS: 81001; 81025; 99282

== ENCOUNTER 2018-09-07 23:41 | Emergency (ER) | payer BC ==
[2018-09-07] MEDS ORDERED: 0.9 % SODIUM CHLORIDE 1000ML 1,000 ML IV SCH (23:45)
--- NOTE | 2018-09-07 23:55 | Emergency Department Record ---
History of Present Illness - General Chief complaint: Flank Pain Stated complaint: FLANK PAIN Time Seen by Provider: 09/07/18 23:42 Source: Patient Mode of Arrival: Ambulatory Limitations: No limitations - History of Present Illness Initial comments: 23 yo female presents to ED for evaluation of right sided flank pain symptoms that began 3 days ago. Patient reports a history of kidney stones (last one in 2013), reports today's symptoms are different. Patient denies fevers, chills, or vomiting symptoms. Patient denies health problems at her baseline. MD Complaint: Other Onset/Timin -: Days(s) Radiation: R flank Severity: Moderate Severity scale (1-10): 6 Quality: Aching Consistency: Constant Improves with: None Worsens with: Urination Patient : No LMP Date: 08/24/18 Gestational Age (wks) based on LMP: 2 Associated Symptoms: Hematuria, Nausea/vomiting - Related Data Sexually active: Yes Previous Rx's Medication Instructions Recorded Hydrocodone/Acetaminophen [[place] 1 each PO Q6H PRN #10 tablet 09/08/18 5-325 Tablet] Tamsulosin HCl [Flomax] 0.4 mg PO DAILY #15 cap.er.24h 09/08/18 Allergies Allergy/AdvReac Type Severity Reaction Status Date / Time No Known Drug Allergies Allergy Verified 09/07/18 23:51 Travel Screening - Travel/Exposure Within Last 30 Days Have you traveled within the last 30 days?: No - Travel Symptoms Symptom Screening: None Review of Systems Constitutional: Denies: Chills, Fever, Malaise, Night sweats Eyes: Denies: Eye discharge, Eye pain ENT: Denies: Congestion, Ear pain, Epistaxis Respiratory: Denies: Cough, Dyspnea Cardiovascular: Denies: Chest pain, Dyspnea on exertion Endocrine: Denies: Fatigue, Heat or cold intolerance Gastrointestinal: Reports: Nausea. Denies: Abdominal pain, Constipation, Vomiting Genitourinary: Denies: Incontinence, Retention Musculoskeletal: Reports: Back pain. Denies: Gout, Joint swelling Skin: Denies: Bruising, Change in color Neurological: Denies: Abnormal gait, Confusion, Headache, Seizure Psychiatric: Denies: Anxiety Hematological/Lymphatic: Denies: Anemia, Blood Clots Past Medical History - SOCIAL HISTORY Smoking Status: Never smoker Drug Use: None - RESPIRATORY Hx Respiratory Disorders: No - CARDIOVASCULAR Hx Cardio Disorders: No - NEURO Hx Neuro Disorders: No - GI Hx GI Disorders: Yes Hx Abdominal Pain: Yes Hx Reflux: Yes Hx Ulcer: Yes - Hx Genitourinary Disorders: Yes Hx Kidney Stones: Yes Hx UTI: Yes (3 uti in past 6 months) - ENDOCRINE Hx Endocrine Disorders: No - MUSCULOSKELETAL Hx Musculoskeletal Disorders: No - PSYCH Hx Psych Problems: No - HEMATOLOGY/ONCOLOGY Hx Hematology/Oncology Disorders: No Family Medical History Hx Anxiety: Mother Hx Depression: Mother Hx Heart Disease: Grandparents Hx HTN: Grandparents Physical Exam - General General Appearance: Alert, Oriented x3, Cooperative, Mild distress, Other ( Appears comfortable on examination.) Limitations: No limitations - Head Head exam: Atraumatic, Normocephalic, Normal inspection Head exam detail: negative: Abrasion, Contusion, Fernandez's sign, General tenderness, Hematoma, Laceration - Eye Eye exam: Normal appearance. negative: Conjunctival injection, Periorbital swelling, Periorbital tenderness, Scleral icterus - ENT Ear exam: negative: Auricular hematoma, Auricular trauma Nasal Exam: negative: Active bleeding, Discharge, Dried blood, Foreign body Mouth exam: negative: Drooling, Laceration, Muffled voice, Tongue elevation - Neck Neck exam: Normal inspection. negative: Meningismus, Tenderness - Respiratory Respiratory exam: Normal lung sounds bilaterally. negative: Rales, Respiratory distress, Rhonchi, Stridor - Cardiovascular Cardiovascular Exam: Regular rate, Normal rhythm, Normal heart sounds - GI/Abdominal GI/Abdominal exam: Soft. negative: Rebound, Rigid, Tenderness - Rectal Rectal exam: Deferred - exam: Deferred - Extremities Extremities exam: Normal inspection. negative: Pedal edema, Tenderness - Back Back exam: Reports: CVA tenderness (R). Denies: CVA tenderness (L) - Neurological Neurological exam: Alert, Normal gait, Oriented X3 - Psychiatric Psychiatric exam: Normal affect, Normal mood - Skin Skin exam: Normal color. negative: Abrasion Type of lesion: negative: abrasion Course Vital Signs 09/07/18 23:47 Temperature 97.8 F Pulse Rate 107 H Respiratory 16 Rate Blood Pressure 138/73 Pulse Ox 98 - Reevaluation(s) Reevaluation #2: 09/08/18 00:43 Laboratory studies were reviewed and are grossly unremarkable except for UA results: RBCs: TNTC WBCs: None Bacteria: None Patient is currently in CT for imaging at this time. Reevaluation #3: 09/08/18 01:51 CT Abdomen and Pelvis: 7 mm non-obstructing calculus right ureteral pelvis Additional non-obstructing nephrolithiais bilaterally Patient was updated on all results, reports that her pain symptoms are improved to 3/10. Patient reports that she sees Dr. Mata through [facility] Instructed to call Dr. Mata tomorrow for follow-up. Will initiate treatment with Flomax and Henderson as directed. Medical Decision Making - Lab Data Result diagrams: 09/07/18 23:50 09/07/18 23:50 Disposition Disposition: Discharge Clinical Impression: Ureteral calculus, right, Ureterolithiasis Disposition: Home, Self-Care Condition: (2) Stable Instructions: Abdominal Pain (ED) Additional Instructions: Return to ED if your symptoms worsen or if you have any concerns. Follow-up with Dr. Mata in 3-5 days as directed. Flomax and Henderson as directed. Prescriptions: Hydrocodone/Acetaminophen [[place] 5-325 Tablet] 1 each PO Q6H PRN #10 tablet PRN Reason: Pain - Mod To Severe (5-10) Tamsulosin HCl [Flomax] 0.4 mg PO DAILY #15 cap.er.24h Forms: Patient Portal Access Time of Disposition: 01:51 Quality - Quality Measures Quality Measures: N/A - Blood Pressure Screening Does Patient Have Any of the Following: No Blood Pressure Classification: Pre-Hypertensive BP Reading Systolic Measurement: 138 Diastolic Measurement: 73 Screening for High Blood Pressure: < Pre-Hypertensive BP, F/U Documented > [ G8950] Pre-Hypertensive Follow-up Interventions: Referral to alternative/primary care provider.
[2018-09-08 00:04] LABS: URINE APPEARANCE CLOUDY; URINE BILIRUBIN NEGATIVE (NEGATIVE); URINE BLOOD LARGE (NEGATIVE); URINE COLOR BROWN; URINE GLUCOSE (UA) NEGATIVE (NEGATIVE); URINE KETONE NEGATIVE (NEGATIVE); URINE LEUKOCYTE ESTERASE NEGATIVE (NEGATIVE); URINE NITRITE NEGATIVE (NEGATIVE); URINE PROTEIN TRACE (NEGATIVE); URINE UROBILINOGEN 0.2 E.U./dL (0.20 - 1.00)
[2018-09-08 00:05] LABS: BASO % 0.4 % (0-6); GRAN % 59.3 % (47-80); HEMOGLOBIN 13.9 gm/dl (11.6-16.0); LYMPH % 33.4 % (16-45); MEAN CELL VOLUME 86.9 fl (81-97); MEAN CORPUSCULAR HEMOGLOBIN 29.4 pg (27-33); MEAN CORPUSCULAR HGB CONC 33.9 g/dl (32-36); MONO % 5.9 % (0-9); PLATELET COUNT 364 K/uL (130-400); RED BLOOD COUNT 4.72 M/uL (3.80-5.40); RED CELL DISTRIBUTION WIDTH 12.6 % (11.5-14.5); WHITE BLOOD COUNT W/O DIFF 11.4 K/uL (4.2-12.2)
[2018-09-08 00:12] LABS: URINE BACTERIA NONE SEEN; URINE EPITHELIAL CELLS 0 - 2 (FEW); URINE WBC NONE SEEN (0-2/hpf)
[2018-09-08 00:22] LABS: BLOOD UREA NITROGEN 15 mg/dL (6-20); CREATININE 0.8 mg/dL (0.5-0.9); EST GLOMERULAR FILTRATION RATE > 60 mL/min
[2018-09-08 00:23] LABS: TOTAL PROTEIN 7.3 g/dL (6.6-8.7)
[2018-09-08 00:25] LABS: GLUCOSE,RANDOM 95 mg/dL (74-109)
[2018-09-08 00:28] LABS: ALB/GLOB RATIO 1.8 (1.1-1.8); ALBUMIN 4.7 g/dL (4.0-5.0); ALKALINE PHOSPHATASE 84 U/L (35-104); ALT/SGPT 16 U/L (<33); AST/SGOT 13 U/L (10.0-35.0)
[2018-09-08] MEDS ORDERED: KETOROLAC 30 MG/ML VIAL IVP ONE (00:42)
--- NOTE | 2018-09-10 07:45 | CT SCAN REPORT ---
EXAM: NONCONTRAST CT OF THE ABDOMEN AND PELVIS HISTORY: HEMATURIA, RIGHT FLANK PAIN. TECHNIQUE: Noncontrast CT of the abdomen and pelvis was obtained. Comparison: CT of the abdomen and pelvis 01/07/17. FINDINGS: The lung bases are clear. The gallbladder is contracted, not well assessed. Unremarkable appearance of the liver, spleen, adrenal glands, and pancreas. No hydronephrosis. A right 7 mm calculus has migrated into the right renal pelvis. An additional 5 mm right and 2 mm left calculus are seen within both kidneys. No ureteral calculi. No calculi of the urinary bladder. No focal colonic thickening or inflammatory change. Normal appendix. The stomach and small bowel are nondilated. No free air or significant free fluid. No acute osseous findings. IMPRESSION: 1. INTERVAL MIGRATION OF A 7 MM RIGHT RENAL CALCULUS FROM A BLANCO INTO THE RENAL PELVIS. NO HYDRONEPHROSIS. 2. ADDITIONAL BILATERAL NONOBSTRUCTING INTRARENAL CALCULI. JOB NUMBER: [id number] MTDD
== END 2018-09-08 01:57 | disposition home or self-care (01) ==
LOC: ER 23:41
DX: N20.2 Calculus of kidney with calculus of ureter (principal)
CPT/HCPCS: 74176; 80053; 81001; 85025; 96361; 96374; 99284; J1885; J7030

== ENCOUNTER 2018-09-14 22:25 | Emergency (ER) | payer BC ==
[2018-09-14] MEDS ORDERED: MORPHINE SULFATE 10 MG/ML VIAL IVP ONE (22:37)
[2018-09-14] MEDS ORDERED: ONDANSETRON HCL IV 4 MG/2 ML VIAL IVP ONE (22:37)
[2018-09-14] MEDS ORDERED: KETOROLAC 30 MG/ML VIAL IVP ONE (22:37)
--- NOTE | 2018-09-14 22:37 | Emergency Department Record ---
History of Present Illness - General Stated Complaint: RT FLANK PAIN Time Seen by Provider: 09/14/18 22:27 Source: Patient Mode of Arrival: Ambulatory Limitations: No limitations - History of Present Illness Initial Comments: 23 yo female presents with flank pain. She was in the ED on 09/07/18. She was diagnosed with a 7mm stone on right in the right renal pelvis. She left the day after the diagnosis for [place] and was not seen yet in follow up. She has had pain since. No fevers. She is having pain and vomiting. She has had hematuria that resolved three days ago. Dr Mata is her doctor at [facility]. MD Complaint: Abdominal pain, Flank pain -: Days(s) (8) Location: R Flank Radiation: R flank Migration to: R Flank Severity: Severe Quality: Aching Consistency: Constant Improves With: Nothing Worsens With: Nothing Context: Other Associated Symptoms: Vomiting - Related Data Previous Rx's Medication Instructions Recorded Hydrocodone/Acetaminophen [[place] 1 each PO Q6H PRN #10 tablet 09/08/18 5-325 Tablet] Tamsulosin HCl [Flomax] 0.4 mg PO DAILY #15 cap.er.24h 09/08/18 Allergies Allergy/AdvReac Type Severity Reaction Status Date / Time No Known Drug Allergies Allergy Verified 09/07/18 23:51 Review of Systems Constitutional: Denies: Chills, Fever, Malaise, Weakness Eyes: Denies: Eye discharge ENT: Denies: Congestion, Throat pain Respiratory: Denies: Cough Cardiovascular: Denies: Chest pain, Syncope Endocrine: Denies: Fatigue Gastrointestinal: Reports: As per HPI, Abdominal pain, Nausea, Vomiting. Denies : Diarrhea Genitourinary: Denies: Dysuria Musculoskeletal: Denies: Arthralgia, Back pain, Myalgia, Neck pain Skin: Denies: Bruising, Change in color, Rash Neurological: Denies: Headache Psychiatric: Denies: Anxiety Hematological/Lymphatic: Denies: Blood Clots, Easy bleeding, Easy bruising Past Medical History - SOCIAL HISTORY Smoking Status: Never smoker Drug Use: None - RESPIRATORY Hx Respiratory Disorders: No - CARDIOVASCULAR Hx Cardio Disorders: No - NEURO Hx Neuro Disorders: No - GI Hx GI Disorders: Yes Hx Abdominal Pain: Yes Hx Reflux: Yes Hx Ulcer: Yes - Hx Genitourinary Disorders: Yes Hx Kidney Stones: Yes Hx UTI: Yes (3 uti in past 6 months) - ENDOCRINE Hx Endocrine Disorders: No - MUSCULOSKELETAL Hx Musculoskeletal Disorders: No - PSYCH Hx Psych Problems: No - HEMATOLOGY/ONCOLOGY Hx Hematology/Oncology Disorders: No Family Medical History Hx Anxiety: Mother Hx Depression: Mother Hx Heart Disease: Grandparents Hx HTN: Grandparents Physical Exam - General General Appearance: Alert, Oriented x3, Cooperative, No acute distress Limitations: No limitations - Head Head exam: Atraumatic, Normal inspection - Eye Eye exam: Normal appearance, PERRL. negative: Conjunctival injection, Scleral icterus - ENT ENT exam: Normal exam Ear exam: Normal external inspection Nasal Exam: Normal inspection Mouth exam: Normal external inspection - Neck Neck exam: Normal inspection - Respiratory Respiratory exam: Normal lung sounds bilaterally. negative: Respiratory distress - Cardiovascular Cardiovascular Exam: Normal rhythm, Normal heart sounds, Tachycardia - GI/Abdominal GI/Abdominal exam: Soft, Tenderness (tender right flank) - Rectal Rectal exam: Deferred - exam: Deferred - Extremities Extremities exam: Normal inspection - Back Back exam: Reports: CVA tenderness (R) - Neurological Neurological exam: Alert, Oriented X3 - Psychiatric Psychiatric exam: Normal affect, Normal mood - Skin Skin exam: Dry, Intact, Normal color, Warm Course - Reevaluation(s) Reevaluation #1: EMR reviewed. 7mm R renal pelvis stone on 09/07/18 09/14/18 22:39 09/14/18 23:02 The CBC was reviewed The WBC is 12.8 09/14/18 23:42 The BMP is normal The UA has signs of contamination with 10-15 epithelial cells with 10-15 WBC's, few bacteria, LE positive. The patient was informed of the need to repeat the UA [facility] will be contacted in the meantime Pain and nausea are controlled 09/15/18 00:23 Dr Hodges of the ED called back. No direct admission is available. The patient will be an ED to ED transfer. The repeat UA was reviewed. Still signs of contamination but she will be given a dose of IV Rocephin A copy of the 09/07/18 CT will be sent with the patient 09/15/18 00:27 The patient prefers transfer ED to ED by ambulance at this time. Medical Decision Making - Lab Data Result diagrams: 09/14/18 22:45 09/14/18 22:45 Disposition Disposition: Transfer Clinical Impression: Ureterolithiasis, Renal colic on right side Disposition: Acute Care Hospital Transfer Transfer To: [facility] ED Reason For Transfer: Renal Stone Accepting Physician: Carroll Time Discussed w/Accepting Physician: 00:25 Condition: (1) Good Forms: Patient Portal Access Time of Disposition: 00:25 Quality - Quality Measures Quality Measures: N/A - Blood Pressure Screening Does Patient Have Any of the Following: No Blood Pressure Classification: Pre-Hypertensive BP Reading Systolic Measurement: 120 Diastolic Measurement: 70 Screening for High Blood Pressure: < Pre-Hypertensive BP, F/U Documented > [ G8950] Pre-Hypertensive Follow-up Interventions: Referral to alternative/primary care provider.
[2018-09-14 22:57] LABS: BASO % 0.3 % (0-6); EOS % 1.3 % (0-6); GRAN % 63.5 % (47-80); HEMATOCRIT 41.3 % (35.0-47.0); LYMPH % 27.9 % (16-45); MEAN CELL VOLUME 86.6 fl (81-97); MEAN CORPUSCULAR HEMOGLOBIN 29.4 pg (27-33); MEAN CORPUSCULAR HGB CONC 33.9 g/dl (32-36); PLATELET COUNT 341 K/uL (130-400); RED BLOOD COUNT 4.77 M/uL (3.80-5.40); RED CELL DISTRIBUTION WIDTH 12.7 % (11.5-14.5); WHITE BLOOD COUNT W/O DIFF 12.8 K/uL (4.2-12.2)
[2018-09-14 22:59] LABS: URINE APPEARANCE CLOUDY; URINE BILIRUBIN NEGATIVE (NEGATIVE); URINE BLOOD LARGE (NEGATIVE); URINE COLOR YELLOW; URINE GLUCOSE (UA) NEGATIVE (NEGATIVE); URINE KETONE NEGATIVE (NEGATIVE); URINE LEUKOCYTE ESTERASE SMALL (NEGATIVE); URINE NITRITE NEGATIVE (NEGATIVE); URINE PROTEIN NEGATIVE (NEGATIVE); URINE UROBILINOGEN 0.2 E.U./dL (0.20 - 1.00)
[2018-09-14 23:07] LABS: BLOOD UREA NITROGEN 15 mg/dL (6-20); CREATININE 0.8 mg/dL (0.5-0.9); EST GLOMERULAR FILTRATION RATE > 60 mL/min; URINE BACTERIA FEW; URINE RBC 16 - 25 (NONE SEEN); URINE URIC ACID CRYSTALS FEW /hpf
[2018-09-14 23:08] LABS: HCG,QUALITATIVE URINE NEGATIVE (NEGATIVE); URINE AMORPHOUS SEDIMENT 2+
[2018-09-14 23:10] LABS: GLUCOSE,RANDOM 108 mg/dL (74-109)
[2018-09-14] MEDS ORDERED: 0.9 % SODIUM CHLORIDE 1000ML 1,000 ML IV ONE (23:46)
[2018-09-15 00:13] LABS: URINE APPEARANCE CLEAR; URINE BILIRUBIN NEGATIVE (NEGATIVE); URINE BLOOD SMALL (NEGATIVE); URINE COLOR YELLOW; URINE GLUCOSE (UA) NEGATIVE (NEGATIVE); URINE KETONE NEGATIVE (NEGATIVE); URINE LEUKOCYTE ESTERASE TRACE (NEGATIVE); URINE NITRITE NEGATIVE (NEGATIVE); URINE PROTEIN NEGATIVE (NEGATIVE); URINE UROBILINOGEN 0.2 E.U./dL (0.20 - 1.00)
[2018-09-15] MEDS ORDERED: MORPHINE SULFATE 10 MG/ML VIAL IVP ONE (00:14)
[2018-09-15 00:20] LABS: URINE BACTERIA 1+; URINE RBC 0 - 2 (NONE SEEN)
[2018-09-15] MEDS ORDERED: CEFTRIAXONE 1GM/50ML BAG 1 GM/50 ML BAG IVPB ONE (00:22)
== END 2018-09-15 00:30 | disposition short-term general hospital (02) ==
LOC: ER 22:25
DX: N20.1 Calculus of ureter (principal); R11.2 Nausea with vomiting, unspecified; Z87.442 Personal history of urinary calculi
CPT/HCPCS: 99285 ×2; 96376; 96374; 96375; 85025; 80048; 81001; 81025; J1885; J2405; J0696; J2270 ×2; J7030

== ENCOUNTER 2018-10-03 09:39 | Emergency (ER) | payer BC ==
--- NOTE | 2018-10-03 09:54 | Emergency Department Record ---
History of Present Illness - General Chief complaint: Dehydration Stated complaint: DEHYDRATED Time Seen by Provider: 10/03/18 09:54 Source: Patient, RN notes reviewed Mode of Arrival: Ambulatory - History of Present Illness Initial comments: patient has vomiting times one today and vomited yesterday 5 times. Thurs 2 days ago at [place] had kidney stone removed with lithotripsy first and stent placement by Dr Mcintyre and she started vomiting night. She denies fever and chiles and her right flank pain better but still painful and she tried zofran three times and not helping. Currently takig keflex and norco and took one half at 3;30AM TODAY. Patient has not called her urologist. Primary Colleen Soria. current pain is 6 and better than before surgery. patient denies Onset/Timin -: Days(s) Location: Generalized Improves with: None Worsens with: None Associated Symptoms: Nausea/vomiting - Danette Coma Scale Eye Response: (4) Open spontaneously Motor Response: (6) Obeys commands Verbal Response: (5) Oriented Danette Total: 15 - Related Data Home Medications Medication Instructions Recorded Confirmed Last Taken Cephalexin 500 tab PO TID 10/03/18 10/03/18 Unknown Esomeprazole Magnesium [Nexium] 20 mg PO DAILY 10/03/18 10/03/18 Unknown Ondansetron [Zofran Odt] 4 mg PO Q8H 10/03/18 10/03/18 Unknown Previous Rx's Medication Instructions Recorded Hydrocodone/Acetaminophen [[place] 1 each PO Q6H PRN #10 tablet 09/08/18 5-325 Tablet] Promethazine HCl [Phenergan] 25 mg PO Q6HR #14 tablet 10/03/18 Allergies Allergy/AdvReac Type Severity Reaction Status Date / Time hydromorphone [From Dilaudid] AdvReac VOMITING Verified 10/03/18 09:46 Travel Screening - Travel/Exposure Within Last 30 Days Have you traveled within the last 30 days?: No Review of Systems Reviewed: No additional complaints except as noted below Constitutional: Reports: As per HPI. Denies: Chills, Fever, Malaise, Night sweats, Weakness, Weight change Eyes: Reports: As per HPI. Denies: Eye discharge, Eye pain, Photophobia, Vision change ENT: Reports: As per HPI. Denies: Congestion, Dental pain, Ear pain, Epistaxis , Hearing loss, Throat pain Respiratory: Reports: As per HPI. Denies: Cough, Dyspnea, Hemoptysis, Stridor, Wheezes Cardiovascular: Reports: As per HPI. Denies: Arrhythmia, Chest pain, Dyspnea on exertion, Edema, Murmurs, Orthopnea, Palpitations, Paroxysmal nocturnal dyspnea, Rheumatic Fever, Syncope Endocrine: Reports: As per HPI. Denies: Fatigue, Heat or cold intolerance, Polydipsia, Polyuria Gastrointestinal: Reports: As per HPI. Denies: Abdominal pain, Constipation, Diarrhea, Hematemesis, Hematochezia, Melena, Nausea, Vomiting Genitourinary: Reports: As per HPI. Denies: Abnormal menses, Discharge, Dyspareunia, Dysuria, Frequency, Hematuria, Incontinence, Retention, Urgency Musculoskeletal: Reports: As per HPI. Denies: Arthralgia, Back pain, Gout, Joint swelling, Myalgia, Neck pain Skin: Reports: As per HPI. Denies: Bruising, Change in color, Change in hair/ nails, Lesions, Pruritus, Rash Neurological: Reports: As per HPI. Denies: Abnormal gait, Confusion, Headache, Numbness, Paresthesias, Seizure, Tingling, Tremors, Vertigo, Weakness Psychiatric: Reports: As per HPI. Denies: Anxiety, Auditory hallucinations, Depression, Homicidal thoughts, Suicidal thoughts, Visual hallucinations Hematological/Lymphatic: Reports: As per HPI. Denies: Anemia, Blood Clots, Easy bleeding, Easy bruising, Swollen glands Past Medical History - SOCIAL HISTORY Smoking Status: Never smoker Alcohol Use: None Drug Use: None - RESPIRATORY Hx Respiratory Disorders: No - CARDIOVASCULAR Hx Cardio Disorders: No - NEURO Hx Neuro Disorders: No - GI Hx GI Disorders: Yes Hx Abdominal Pain: Yes Hx Reflux: Yes Hx Ulcer: Yes - Hx Genitourinary Disorders: Yes Hx Kidney Stones: Yes Hx UTI: Yes - ENDOCRINE Hx Endocrine Disorders: No - MUSCULOSKELETAL Hx Musculoskeletal Disorders: No - PSYCH Hx Psych Problems: No - HEMATOLOGY/ONCOLOGY Hx Hematology/Oncology Disorders: No Family Medical History Any Significant Family History?: Yes Hx Anxiety: Mother Hx Depression: Mother Hx Heart Disease: Grandparents Hx HTN: Grandparents Physical Exam - General General Appearance: Alert, Oriented x3, Cooperative, No acute distress - Head Head exam: Normal inspection - Eye Eye exam: Normal appearance, PERRL Pupils: Normal accommodation - ENT ENT exam: Normal exam, Mucous membranes moist, Normal external ear exam, Normal orophraynx, TM's normal bilaterally Ear exam: Normal external inspection. negative: External canal tenderness Nasal Exam: Normal inspection. negative: Discharge, Sinus tenderness Mouth exam: Normal external inspection, Tongue normal Teeth exam: Normal inspection. negative: Dental caries Throat exam: Normal inspection. negative: Tonsillar erythema, Tonsillar exudate - Neck Neck exam: Normal inspection, Full ROM. negative: Tenderness - Respiratory Respiratory exam: Normal lung sounds bilaterally. negative: Respiratory distress - Cardiovascular Cardiovascular Exam: Regular rate, Normal rhythm, Normal heart sounds - GI/Abdominal GI/Abdominal exam: Soft, Normal bowel sounds, Tenderness (right flank pain) - Rectal Rectal exam: Deferred - exam: Deferred - Extremities Extremities exam: Normal inspection, Full ROM, Normal capillary refill. negative: Tenderness - Back Back exam: Reports: Normal inspection, Full ROM. Denies: Muscle spasm, Rash noted, Tenderness - Neurological Neurological exam: Alert, Normal gait, Oriented X3, Reflexes normal - Psychiatric Psychiatric exam: Normal affect, Normal mood - Skin Skin exam: Dry, Intact, Normal color, Warm Course Vital Signs 10/03/18 09:44 Temperature 98.3 F Pulse Rate 80 Respiratory 20 Rate Blood Pressure 132/78 Pulse Ox 98 - Reevaluation(s) Reevaluation #1: She is feeling better and sleeping on the bed 10/03/18 12:53 Reevaluation #2: discussed case with Dr Mcintyre and if more problems go to [place] ED or call his office on friday10/03/18 14:47 Medical Decision Making - Data Complexity MDM Data: X-Ray Ordered and/or Reviewed (CT abd with right stent with a stone 3mm and no hydroneprosis) - Lab Data Result diagrams: 10/03/18 09:50 10/03/18 09:50 Disposition Clinical Impression: History of kidney stones, Renal colic on right side Nausea & vomiting Qualifiers: Vomiting type: unspecified Vomiting Intractability: non-intractable Qualified Code(s): R11.2 - Nausea with vomiting, unspecified Disposition: Home, Self-Care Condition: (1) Good Instructions: Acute Nausea and Vomiting (ED) Additional Instructions: follow up with urologist in [place] as scheduled phenergan 25 mg every 6 hours as needed use only one half norco and use tylenol or motrin for pain , no more than 4 gms of tylenol for 24 hours. if more problems needs to go to [facility] if having problems friday call Dr. Mcintyre office on friday Prescriptions: Promethazine HCl [Phenergan] 25 mg PO Q6HR #14 tablet Forms: Patient Portal Access Time of Disposition: 12:52 Quality - Quality Measures Quality Measures: N/A - Blood Pressure Screening Does Patient Have Any of the Following: No Blood Pressure Classification: Pre-Hypertensive BP Reading Systolic Measurement: 132 Diastolic Measurement: 78 Screening for High Blood Pressure: < Pre-Hypertensive BP, F/U Documented > [ G8950] Pre-Hypertensive Follow-up Interventions: Referral to alternative/primary care provider.
[2018-10-03] MEDS ORDERED: 0.9 % SODIUM CHLORIDE 1,000 ML BAG IV ONE (10:07)
[2018-10-03] MEDS ORDERED: PROMETHAZINE HCL 25 MG/ML VIAL IV ONE (10:07)
[2018-10-03] MEDS ORDERED: KETOROLAC 30 MG/ML VIAL IVP ONE (10:07)
[2018-10-03 10:21] LABS: BASO % 0.3 % (0-6); EOS % 0.5 % (0-6); GRAN % 50.1 % (47-80); HEMATOCRIT 39.9 % (35.0-47.0); HEMOGLOBIN 13.2 gm/dl (11.6-16.0); LYMPH % 41.5 % (16-45); MEAN CELL VOLUME 88.7 fl (81-97); MEAN CORPUSCULAR HEMOGLOBIN 29.3 pg (27-33); MEAN CORPUSCULAR HGB CONC 33.1 g/dl (32-36); MEAN PLATELET VOLUME 10.3 fl (7.4-10.4); MONO % 7.6 % (0-9); PLATELET COUNT 307 K/uL (130-400); RED CELL DISTRIBUTION WIDTH 12.7 % (11.5-14.5); WHITE BLOOD COUNT W/O DIFF 10.2 K/uL (4.2-12.2)
[2018-10-03 10:23] LABS: URINE APPEARANCE CLOUDY; URINE BILIRUBIN SMALL (NEGATIVE); URINE BLOOD LARGE (NEGATIVE); URINE COLOR RED; URINE GLUCOSE (UA) NEGATIVE (NEGATIVE); URINE KETONE NEGATIVE (NEGATIVE); URINE LEUKOCYTE ESTERASE LARGE (NEGATIVE); URINE NITRITE NEGATIVE (NEGATIVE); URINE UROBILINOGEN 0.2 E.U./dL (0.20 - 1.00)
[2018-10-03 10:33] LABS: BLOOD UREA NITROGEN 17 mg/dL (6-20); CREATININE 0.8 mg/dL (0.5-0.9); EST GLOMERULAR FILTRATION RATE > 60 mL/min
[2018-10-03 10:34] LABS: LIPASE 13 U/L (13-60); TOTAL PROTEIN 7.1 g/dL (6.6-8.7)
[2018-10-03 10:35] LABS: URINE BACTERIA NONE SEEN; URINE EPITHELIAL CELLS 0 - 2 (FEW); URINE WBC 16 - 20 (0-2/hpf)
[2018-10-03 10:36] LABS: GLUCOSE,RANDOM 86 mg/dL (74-109)
[2018-10-03 10:38] LABS: ALBUMIN 4.6 g/dL (4.0-5.0); ALKALINE PHOSPHATASE 75 U/L (35-104); ALT/SGPT 10 U/L (<33); AST/SGOT 9 U/L (10.0-35.0)
[2018-10-03 10:47] LABS: BILIRUBIN,DIRECT < 0.2 mg/dL (0-0.3)
[2018-10-03] MEDS ORDERED: ONDANSETRON HCL IV 4 MG/2 ML VIAL IVP ONE (11:16)
[2018-10-03] MEDS ORDERED: 0.9 % SODIUM CHLORIDE 1000ML 1,000 ML IV ONE (12:29)
[2018-10-03] MEDS ORDERED: LORAZEPAM 2 MG/ML VIAL IV ONE (14:31)
--- NOTE | 2018-10-05 15:02 | CT SCAN REPORT ---
EXAM: CT SCAN OF THE ABDOMEN AND PELVIS WITHOUT CONTRAST HISTORY: RIGHT FLANK AND KIDNEY PAIN FOR THE PAST MONTH. NAUSEA. RIGHT URETERAL STENT PLACEMENT. POST LITHOTRIPSY. TECHNIQUE: Standard CT imaging of the abdomen and pelvis was performed in the axial plane without contrast. Additional coronal ans sagittal reformatted images were also performed. Comparison: 09/08/18. FINDINGS: The lung bases are clear. The liver, gallbladder, biliary tree, pancreas, spleen, and adrenal glands are normal. A right ureteral stent is in place. There is a 3 mm calculus adjacent to the stent at the level of the right ureteropelvic junction. A 3 mm nonobstructing stone is also present within the right kidney. There is a 4 mm nonobstructing stone within the left kidney. There is no current obstructing calculus or hydronephrosis. There is no abnormal perinephric fat stranding. The renal parenchyma appears normal. The aorta is normal in caliber. There is no retroperitoneal lymphadenopathy. The large and small bowel loops including the appendix are normal. There is no pneumoperitoneum or ascites. The uterus and adnexa are normal. The urinary bladder is unremarkable. The abdominal wall and osseous structures are normal. IMPRESSION: 1. RIGHT URETERAL STENT IN PLACE. THERE IS A 3 MM CALCULUS ADJACENT TO THE URETERAL STENT AT THE LEVEL OF THE URETEROPELVIC JUNCTION. 2. SMALL NONOBSTRUCTING INTRARENAL CALCULI BILATERALLY. 3. THE REMAINING PORTIONS OF THE ABDOMEN AND PELVIS ARE UNREMARKABLE. JOB NUMBER: [id number] MTDD
== END 2018-10-03 15:21 | disposition home or self-care (01) ==
LOC: ER 09:39
DX: N20.0 Calculus of kidney (principal); R11.2 Nausea with vomiting, unspecified; Z87.442 Personal history of urinary calculi
CPT/HCPCS: 99284 ×2; 96374; 96375; 96361; 83690; 85025; 80076; 80048; 81001; 81025; 74176; J1885; J2405; J2060; J2550; J7030

== ENCOUNTER 2019-06-23 13:03 | Emergency (ER) | payer BC ==
[2019-06-23] MEDS ORDERED: ONDANSETRON HCL IV 4 MG/2 ML VIAL IV ONE (14:41)
[2019-06-23] MEDS ORDERED: ACETAMINOPHEN 1,000 MG/100 ML BTL IVPB ONE (14:41)
[2019-06-23] MEDS ORDERED: 0.9 % SODIUM CHLORIDE 1,000 ML BAG IV ONE (14:41)
--- NOTE | 2019-06-23 14:47 | Emergency Department Record ---
History of Present Illness - General Chief Complaint: Abdominal Pain Stated Complaint: ABD PAIN/N/V Time Seen by Provider: 06/23/19 14:32 Mode of Arrival: Ambulatory - History of Present Illness Initial Comments: 3 days of epigastric abd pain and vomiting times one today and and previous history of pancreatitis Onset/Timin -: Days(s) Radiation: Epigastric Severity scale (1-10): 8 Quality: Burning Consistency: Constant Improves With: Nothing Worsens With: Nothing - Related Data LMP (females 10-50): Current Home Medications Medication Instructions Recorded Confirmed Last Taken Chlorthalidone 25 mg PO DAILY 06/23/19 06/23/19 06/22/19 Previous Rx's Medication Instructions Recorded Omeprazole 20 mg PO BID #60 tablet. 06/23/19 Allergies Allergy/AdvReac Type Severity Reaction Status Date / Time hydromorphone [From Dilaudid] AdvReac VOMITING Verified 06/23/19 14:08 Travel Screening - Travel/Exposure Within Last 30 Days Have you traveled within the last 30 days?: No - Travel/Exposure Within Last Year Have you traveled outside the [place] in the last year?: No - Additonal Travel Details Have you been exposed to anyone with a communicable illness?: No - Travel Symptoms Symptom Screening: None Review of Systems Reviewed: No additional complaints except as noted below Constitutional: Reports: As per HPI. Denies: Chills, Fever, Malaise, Night sweats, Weakness, Weight change Eyes: Reports: As per HPI. Denies: Eye discharge, Eye pain, Photophobia, Vision change ENT: Reports: As per HPI. Denies: Congestion, Dental pain, Ear pain, Epistaxis, Hearing loss, Throat pain Respiratory: Reports: As per HPI. Denies: Cough, Dyspnea, Hemoptysis, Stridor, Wheezes Cardiovascular: Reports: As per HPI. Denies: Arrhythmia, Chest pain, Dyspnea on exertion, Edema, Murmurs, Orthopnea, Palpitations, Paroxysmal nocturnal dyspnea, Rheumatic Fever, Syncope Endocrine: Reports: As per HPI. Denies: Fatigue, Heat or cold intolerance, Polydipsia, Polyuria Gastrointestinal: Reports: As per HPI, Abdominal pain, Nausea, Vomiting. Denies: Constipation, Diarrhea, Hematemesis, Hematochezia, Melena Genitourinary: Reports: As per HPI. Denies: Abnormal menses, Discharge, Dyspareunia, Dysuria, Frequency, Hematuria, Incontinence, Retention, Urgency Musculoskeletal: Reports: As per HPI. Denies: Arthralgia, Back pain, Gout, Joint swelling, Myalgia, Neck pain Skin: Reports: As per HPI. Denies: Bruising, Change in color, Change in hair/nails, Lesions, Pruritus, Rash Neurological: Reports: As per HPI. Denies: Abnormal gait, Confusion, Headache, Numbness, Paresthesias, Seizure, Tingling, Tremors, Vertigo, Weakness Psychiatric: Reports: As per HPI. Denies: Anxiety, Auditory hallucinations, Depression, Homicidal thoughts, Suicidal thoughts, Visual hallucinations Hematological/Lymphatic: Reports: As per HPI. Denies: Anemia, Blood Clots, Easy bleeding, Easy bruising, Swollen glands Past Medical History - SOCIAL HISTORY Smoking Status: Never smoker Alcohol Use: Rare Drug Use: None - RESPIRATORY Hx Respiratory Disorders: No - CARDIOVASCULAR Hx Cardio Disorders: No - NEURO Hx Neuro Disorders: No - GI Hx GI Disorders: Yes Hx Abdominal Pain: Yes Hx Reflux: Yes Hx Ulcer: Yes - Hx Genitourinary Disorders: Yes Hx Kidney Stones: Yes Hx UTI: Yes - ENDOCRINE Hx Endocrine Disorders: No - MUSCULOSKELETAL Hx Musculoskeletal Disorders: No - PSYCH Hx Psych Problems: No - HEMATOLOGY/ONCOLOGY Hx Hematology/Oncology Disorders: No Family Medical History Any Significant Family History?: No Hx Anxiety: Mother Hx Depression: Mother Hx Heart Disease: Grandparents Hx HTN: Grandparents Physical Exam - General General Appearance: Alert, Oriented x3, Cooperative, No acute distress - Head Head exam: Normal inspection - Eye Eye exam: Normal appearance, PERRL Pupils: Normal accommodation - ENT ENT exam: Normal exam, Mucous membranes moist, Normal external ear exam, Normal orophraynx, TM's normal bilaterally Ear exam: Normal external inspection. negative: External canal tenderness Nasal Exam: Normal inspection. negative: Discharge, Sinus tenderness Mouth exam: Normal external inspection, Tongue normal Teeth exam: Normal inspection. negative: Dental caries Throat exam: Normal inspection. negative: Tonsillar erythema, Tonsillar exudate - Neck Neck exam: Normal inspection, Full ROM. negative: Tenderness - Respiratory Respiratory exam: Normal lung sounds bilaterally. negative: Respiratory distress - Cardiovascular Cardiovascular Exam: Regular rate, Normal rhythm, Normal heart sounds - GI/Abdominal GI/Abdominal exam: Soft, Normal bowel sounds, Tenderness (epigastric abd pain) - Rectal Rectal exam: Deferred - exam: Deferred - Extremities Extremities exam: Normal inspection, Full ROM, Normal capillary refill. negative: Tenderness - Back Back exam: Reports: Normal inspection, Full ROM. Denies: Muscle spasm, Rash noted, Tenderness - Neurological Neurological exam: Alert, Normal gait, Oriented X3, Reflexes normal - Psychiatric Psychiatric exam: Normal affect, Normal mood - Skin Skin exam: Dry, Intact, Normal color, Warm Course Vital Signs 06/23/19 13:31 Temperature 98.0 F Pulse Rate [ 95 H Pulse Ox Probe] Respiratory 20 Rate Blood Pressure 126/71 [Right Arm] Pulse Ox 99 Medical Decision Making - Lab Data Result diagrams: 06/23/19 12:15 06/23/19 12:15 Disposition Clinical Impression: Abdominal pain Qualifiers: Abdominal location: epigastric Qualified Code(s): R10.13 - Epigastric pain Gastritis Qualifiers: Gastritis type: unspecified gastritis Chronicity: acute Gastritis bleeding: without bleeding Qualified Code(s): K29.00 - Acute gastritis without bleeding Disposition: Home, Self-Care Condition: (2) Stable Instructions: Gastritis (ED), Abdominal Pain (ED) Additional Instructions: follow up with family dr in 5 days maalox one tablespoon after meals and bedtime use omeprazole twice aday for one week than one a day Prescriptions: Omeprazole 20 mg PO BID #60 tablet.dr Forms: Patient Portal Access Time of Disposition: 17:53 Quality - Quality Measures Quality Measures: N/A - Blood Pressure Screening Does Patient Have Any of the Following: No Blood Pressure Classification: Pre-Hypertensive BP Reading Systolic Measurement: 124 Diastolic Measurement: 64 Screening for High Blood Pressure: < Pre-Hypertensive BP, F/U Documented > [G8950] Pre-Hypertensive Follow-up Interventions: Referral to alternative/primary care provider.
[2019-06-23 15:12] LABS: URINE APPEARANCE CLEAR; URINE BILIRUBIN NEGATIVE (NEGATIVE); URINE BLOOD TRACE-I (NEGATIVE); URINE COLOR YELLOW; URINE GLUCOSE (UA) NEGATIVE (NEGATIVE); URINE KETONE NEGATIVE (NEGATIVE); URINE LEUKOCYTE ESTERASE NEGATIVE (NEGATIVE); URINE NITRITE NEGATIVE (NEGATIVE); URINE PROTEIN NEGATIVE (NEGATIVE); URINE UROBILINOGEN 0.2 E.U./dL (0.20 - 1.00)
[2019-06-23 15:12] LABS: ABSOLUTE NEUTROPHIL COUNT 5.24; BASO % 0.2 % (0-6); EOS % 1.3 % (0-6); GRAN % 54.1 % (47-80); HEMATOCRIT 39.1 % (35.0-47.0); HEMOGLOBIN 13.1 gm/dl (11.6-16.0); LYMPH % 35.9 % (16-45); MEAN CELL VOLUME 86.5 fl (81-97); MEAN CORPUSCULAR HGB CONC 33.5 g/dl (32-36); MEAN PLATELET VOLUME 10.2 fl (7.4-10.4); MONO % 8.5 % (0-9); PLATELET COUNT 331 K/uL (130-400); RED BLOOD COUNT 4.52 M/uL (3.80-5.40); RED CELL DISTRIBUTION WIDTH 12.8 % (11.5-14.5); WHITE BLOOD COUNT W/O DIFF 9.7 K/uL (4.2-12.2)
[2019-06-23 15:21] LABS: BLOOD UREA NITROGEN 14 mg/dL (6-20); CREATININE 0.8 mg/dL (0.5-0.9); EST GLOMERULAR FILTRATION RATE > 60 mL/min
[2019-06-23 15:21] LABS: URINE RBC 0 - 2 (NONE SEEN); URINE WBC NONE SEEN (0-2/hpf)
[2019-06-23 15:22] LABS: LIPASE 53 U/L (13-60); TOTAL PROTEIN 6.8 g/dL (6.6-8.7)
[2019-06-23 15:24] LABS: GLUCOSE,RANDOM 84 mg/dL (74-109)
[2019-06-23 15:26] LABS: ALT/SGPT 14 U/L (<33)
[2019-06-23 15:27] LABS: ALBUMIN 4.4 g/dL (4.0-5.0); ALKALINE PHOSPHATASE 63 U/L (35-104); AST/SGOT 15 U/L (10.0-35.0)
[2019-06-23 15:28] LABS: BILIRUBIN,DIRECT < 0.2 mg/dL (0-0.3)
[2019-06-23] MEDS ORDERED: PANTOPRAZOLE SODIUM 40 MG TABLET PO ONE (15:43)
[2019-06-23] MEDS ORDERED: MAGNESIUM HYDROXIDE/AL HYDROX 30 ML, LIDOCAINE VISC 2% 15ML 15 ML PO ONE ×2 (17:27)
== END 2019-06-23 18:12 | disposition home or self-care (01) ==
LOC: ER 13:03
DX: K29.00 Acute gastritis without bleeding (principal); R10.13 Epigastric pain; R11.10 Vomiting, unspecified
CPT/HCPCS: 80048; 80076; 81001; 83690; 85025; 96365; 96375; 99284; J2405; J7030